=== PATIENT | female | born 1965 | race Caucasian/White ===

== ENCOUNTER → 2020-09-13 08:00 | Outpatient (CLI) | payer OTHER, SELFPAY ==
[2020-09-14 09:14] LABS: Alanine Aminotransferase 27 U/L (12-78); Albumin/Globulin Ratio 1.6 (1.1-1.8); Alkaline Phosphatase 128 U/L (38-126); Anion Gap 11.5 mEq/L (5-15); Aspartate Amino Transferase 29 U/L (14-36); Basophils # 0.1 K/mm3 (0-0.2); Bilirubin,Total 0.4 mg/dl (0.2-1.3); Blood Urea Nitrogen 14 mg/dl (7-17); Calcium 9.3 mg/dl (8.4-10.2); Carbon Dioxide 31 mmol/L (22.0-30.0); Chloride 107 mmol/L (98-107); Chol/HDL Ratio 1.8 (1-3.5); Cholesterol 123 mg/dl (140-200); Eosinophils # 0.2 K/mm3 (0.0-0.4); Eosinophils % 2.4 % (0.1-12.0); Estimated Glomerular Filt Rate 87 ml/min (>60); GFR (African American) 105 ML/MIN (>60); Globulin 2.5 g/dL (1.3-3.2); Glucose 92 mg/dl (74-100); HDL Cholesterol 67 mg/dl (40-60); Hematocrit 48.8 % (37.0-47.0); Hemoglobin 15.4 g/dL (12.2-16.2); Lymphocytes % 25.7 % (10-50); Mean Corpuscular HGB Conc 31.6 g/dL (31.8-35.4); Mean Corpuscular Hemoglobin 29.9 pg (27.0-31.2); Mean Corpuscular Volume 94.5 fl (81-99); Mean Platelet Volume 10.3 fl (7.4-10.4); Monocytes # 0.5 K/mm3 (0.1-1.0); Monocytes % 6.6 % (1.7-9.3); Neutrophils % 64.3 % (37.0-80.0); Platelet Count 197 K/mm3 (142-424); Potassium 4.5 mmoL/L (3.5-5.1); Red Blood Count 5.16 M/mm3 (4.20-5.40); Red Cell Distribution Width 14.3 % (11.5-17.5); Sodium 145 mmol/L (136-145); Total Protein,Serum 6.5 g/dl (6.3-8.2); Triglycerides 62 mg/dl (30-150); VLDL Cholesterol 12 mg/dL (0-40); White Blood Count 7.8 K/mm3 (4.8-10.8)
[2020-09-14 09:43] LABS: Thyroid Stimulating Hormone 1.78 uIU/mL (0.465-4.68)
[2020-09-14 16:44] LABS: Direct LDL Cholesterol 44.31 mg/dL (100-129)
[2020-09-14 16:51] LABS: T4 (Thyroxine) 8.5 ug/dl (5.53-11.0)
== END ==
PROVIDERS: Visit Provider Nurse Practitioner Family
DX: I10 Essential (primary) hypertension (principal); E03.9 Hypothyroidism, unspecified
CPT/HCPCS: 80053; 80061; 84436; 84443; 85025

== ENCOUNTER → 2021-02-02 16:07 | Outpatient (CLI) | payer OTHER, SELFPAY | PROVIDERS: PCP Nurse Practitioner Family; Visit Provider Nurse Practitioner | DX: Z20.822 Contact with and (suspected) exposure to COVID-19 (principal) | CPT/HCPCS: C9803; U0003; U0005 ==

== ENCOUNTER 2021-05-20 16:13 | Emergency (ER) | payer OTHER, SELFPAY ==
[2021-05-20 16:22] VITALS: BP 162/105; PULSE 93; RESP 16; TEMP 36.6; O2SAT 98; BMI 31.0
[2021-05-20 16:36] VITALS: PULSE 93; RESP 16; TEMP 36.6; O2SAT 98; BMI 310.7
--- NOTE | 2021-05-20 16:49 | HMH.EDUTC ---
[facility] [place] Disposition Clinical Impression: Tendinopathy of right shoulder Right shoulder pain Qualifiers: Chronicity: unspecified Qualified Code(s): M25.511 - Pain in right shoulder Disposition: Home, Self-Care Condition on Discharge: Good Instructions: Shoulder Tendinopathy, DI for Shoulder Pain Additional Instructions: Rest the extremity Take the medication as directed. Rest as much as you can for the next few days. Follow up with Dr. Rivera (orthopedics). I put in a referral but you need to call his office and schedule an appointment. The muscle relaxer (cyclobenzaprine--Flexeril) will make you drowsy, so don't drive or operate heavy machinery after taking it. Follow up with your regular doctor. GO TO THE ER FOR ANY WORSENING SYMPTOMS Prescriptions: Cyclobenzaprine HCl [Cyclobenzaprine 10mg Tab] 10 mg PO BIDP PRN #20 tab PRN Reason: Muscle Spasm Transmission Status: Received by [facility] #[id number] methylPREDNISolone [Medrol] 4 mg PO DIRECTED 6 Days #21 packet Transmission Status: Received by [facility] #[id number] Referrals: Abdelrahman Wilkins APRN [Primary Care Provider] - Praneeth Rivera MD [Staff Physician] - Time of Disposition: 17:07 Medical Decision Making - Medical Records Medical records reviewed: No: I reviewed the patient's medical records. - Brady Inquiry Pt receiving controlled substance: No Vital Signs: 05/20/21 16:22 05/20/21 16:36 05/20/21 17:13 Temperature 98 F 98 F 98 F Temperature Source Oral Oral Pulse Rate 93 H Pulse Rate [Radial] 93 H 93 H Respiratory Rate 16 16 16 Blood Pressure 162/105 H Blood Pressure [Right Arm] 162/105 H Blood Pressure Mean [Right Arm] 124 02 Sat by Pulse Oximetry 98 98 Oxygen Delivery Method Room Air Orders (Tests/Meds): ED MEDICATIONS Discontinued Medications Generic Name Dose Route Start Last Admin Trade Name Freq PRN Reason Stop Dose Admin Ketorolac Tromethamine 60 mg 05/20/21 17:03 05/20/21 17:10 Ketorolac 60mg/2ml Vial IM 05/20/21 17:04 60 mg ONCE ONE Administration Methylprednisolone Sodium Succinate 125 mg 05/20/21 17:03 05/20/21 17:07 Methylprednisolone Sod Succ 125mg Vial IM 05/20/21 17:04 125 mg ONCE ONE Administration [facility] [place] HPI - General Stated complaint: shoulder pain Time Seen by Provider: 05/20/21 16:49 Mode of Arrival: Ambulatory Source of Information: Patient Limitations: No Limitations Description of Symptoms (Recalled from Triage Doc. by RN): pt c/o severe R shoulder pain x2 weeks. pt presents with limited ROM and is unable to full lift her arm. pt states she had similar pain in her L shoulder a few weeks ago. however, the left shoulder is no longer painful. pt denies injury to either arm. HEENT Symptoms (Recalled from RN notes): No Resp Symptoms (Recalled from RN notes): No Skin Symptoms (Recalled from RN notes): No MS Symptoms (Recalled from RN notes): Yes Functional Status (Recalled from RN notes): wnl - History of Present Illness Provider Complaint: She c/o right shoulder pain. She states that this shoulder has been hurting for the past 2 weeks. She was having left shoulder pain, but that got better, then she began having pain and decreased rom in the other shoulder. She denies any fall or other injury. - Related Data Previous Rx's Medication Instructions Recorded metoprolol succinate 100 mg 100 mg PO DAILY #90 tab 01/13/21 tablet,extended release 24 hr [id number] 3.3 4 drp OTIC QID #10 ml 01/13/21 mg-3 mg-10 mg-0.5 mg/mL ear drops,susp albuterol sulfate 90 mcg/actuation 1 puff INHALATION Q6H #6.7 g 03/15/21 aerosol inhaler Cyclobenzaprine HCl 10 mg PO BIDP PRN #20 tab 05/20/21 [Cyclobenzaprine 10mg Tab] methylPREDNISolone [Medrol] 4 mg PO DIRECTED 6 Days #21 05/20/21 packet Allergies Allergy/AdvReac Type Severity Reaction Status Date / Time No Known Allergies Allergy Verified 03/15/21 15
[2021-05-20 17:13] VITALS: BP 162/105; PULSE 93; RESP 16; TEMP 36.6
== END 2021-05-20 17:18 | disposition home or self-care (01) ==
PROVIDERS: Emergency Provider Nurse Practitioner Family; PCP Nurse Practitioner Family
DX: M67.911 Unspecified disorder of synovium and tendon, right shoulder (principal); M25.511 Pain in right shoulder; J45.909 Unspecified asthma, uncomplicated; I10 Essential (primary) hypertension; E03.9 Hypothyroidism, unspecified
CPT/HCPCS: 96372; 99213; G0463

== ENCOUNTER 2021-07-07 23:02 | Inpatient (IN) | payer OTHER, SELFPAY ==
[2021-07-07 23:12] VITALS: BP 122/70; PULSE 119; RESP 20; TEMP 36.9; O2SAT 96; BMI 31.3
[2021-07-07 23:20] LABS: Microscopic, Urine URINE MICROSCOPIC (MICROSCOPIC)
[2021-07-07 23:22] LABS: Appearance,Urine CLOUDY (Clear); Blood, Urine 3+ (Negative); Color,Urine BROWN (Yellow); Glucose,Urine (UA) Negative (Negative); Ketones,Urine TRACE (Negative); Leukocyte Esterase,Urine 2+ (Negative); Nitrate,Urine Negative (Negative); PH,Urine 6.5 (5.0-8.5); Protein,Urine 2+ (Negative); Specific Gravity, Urine 1.025 (1.005-1.030)
[2021-07-07 23:23] LABS: Bilirubin,Urine 2+ (Negative)
[2021-07-07 23:27] LABS: Bacteria,Urine 3+ /lpf; RBC,Urine TNTC #/hpf (0-3); WBC,Urine 20-50 #/hpf (0-3)
[2021-07-07 23:30] VITALS: BP 110/79; PULSE 113; O2SAT 99
--- NOTE | 2021-07-07 23:34 | CT_ITS ---
PROCEDURE INFORMATION: Exam: CT Abdomen And Pelvis Without Contrast Exam date and time: 07/07/2021 11:40 PM Age: 55 years old Clinical indication: Abdominal pain; Right; Patient HX: RT flank pain; Additional info: Stone protocol TECHNIQUE: Imaging protocol: Computed tomography of the abdomen and pelvis without contrast. Radiation optimization: All CT scans at this facility use at least one of these dose optimization techniques: automated exposure control; mA and/or kV adjustment per patient size (includes targeted exams where dose is matched to clinical indication); or iterative reconstruction. COMPARISON: No relevant prior studies available. FINDINGS: Lungs: Mild atelectasis in the lung bases. Liver: Normal. No mass. Gallbladder and bile ducts: Normal. No calcified stones. No ductal dilation. Pancreas: Normal. No ductal dilation. Spleen: Normal. No splenomegaly. Adrenal glands: Normal. No mass. Kidneys and ureters: 2.9 cm left renal cyst. Cyst is simple requiring no further follow-up. There is mild left hydronephrosis secondary to a 6 mm stone in the distal left ureter. Punctate non-obstructing left renal stone. Stomach and bowel: Unremarkable. No obstruction. No mucosal thickening. Appendix: Normal appendix. Intraperitoneal space: Unremarkable. No free air. No significant fluid collection. Vasculature: Unremarkable. No abdominal aortic aneurysm. Lymph nodes: Unremarkable. No enlarged lymph nodes. Urinary bladder: Unremarkable as visualized. Reproductive: Mild fluid in the endometrial canal. Bones/joints: Unremarkable. No acute fracture. Soft tissues: Unremarkable. IMPRESSION: 1. There is mild left hydronephrosis secondary to a 6 mm stone in the distal left ureter. 2. Punctate non-obstructing left renal stone. Simple left renal cyst. 3. Normal appendix. COMMENTS: Consistent with the [employer]'s Incidental Findings Committee white paper (J Am Baltazar Radiol 2018): Any incidental renal lesion less than 1 cm or classified as too small to characterize, or any incidental cystic renal lesion characterized as simple-appearing, is likely benign. No follow-up imaging is recommended for these lesions per consensus recommendations based on imaging criteria.
[2021-07-07 23:35] LABS: Basophils # 0.3 K/mm3 (0-0.2); Basophils % 1.8 % (0.1-2.0); Eosinophils # 0.1 K/mm3 (0.0-0.4); Eosinophils % 0.7 % (0.1-12.0); Hematocrit 49.8 % (37.0-47.0); Hemoglobin 16.5 g/dL (12.2-16.2); Lymphocytes # 0.7 K/mm3 (0.7-4.5); Lymphocytes % 4.9 % (10-50); Mean Corpuscular HGB Conc 33.1 g/dL (31.8-35.4); Mean Corpuscular Hemoglobin 30.5 pg (27.0-31.2); Mean Corpuscular Volume 92.2 fl (81-99); Mean Platelet Volume 9.7 fl (7.4-10.4); Monocytes # 0.7 K/mm3 (0.1-1.0); Monocytes % 4.7 % (1.7-9.3); Neutrophils # 13.3 K/mm3 (1.8-7.8); Neutrophils % 87.9 % (37.0-80.0); Platelet Count 133 K/mm3 (142-424); White Blood Count 15.1 K/mm3 (4.8-10.8)
[2021-07-07 23:36] LABS: MANUAL DIFFERENTIAL MANUAL DIFFERENTIAL (MANUAL DIFF)
[2021-07-07 23:40] LABS: Chloride 100 mmol/L (98-107); Potassium 3.6 mmoL/L (3.5-5.1); Sodium 132 mmol/L (136-145)
[2021-07-07 23:42] LABS: Alanine Aminotransferase 161 U/L (12-78); Aspartate Amino Transferase 158 U/L (14-36); Blood Urea Nitrogen 19 mg/dl (7-17); Creatinine Clearance Estimated 91 mL/min (50-200); Estimated Glomerular Filt Rate 58 ml/min (>60); GFR (African American) 70 ML/MIN (>60)
[2021-07-07 23:43] LABS: Albumin Level 3.5 g/dl (3.5-5.0); Albumin/Globulin Ratio 1.2 (1.1-1.8); Alkaline Phosphatase 211 U/L (38-126); Anion Gap 8.6 mEq/L (5-15); Bilirubin,Total 0.7 mg/dl (0.2-1.3); Carbon Dioxide 27 mmol/L (22.0-30.0); Globulin 2.9 g/dL (1.3-3.2); Glucose 126 mg/dl (74-100); Lipase 72 U/L (23-300); Total Protein,Serum 6.4 g/dl (6.3-8.2)
[2021-07-07 23:48] LABS: Lymphocytes % 3 % (10-50); Monocytes % 1 % (2-9); Neutrophils % 82 % (42-76); Total Cells Counted 100
[2021-07-07 23:49] LABS: Platelet Estimate Normal; RBC Morphology Normal
[2021-07-07 23:56] LABS: Lactic Acid 1.2 mmol/L (0.7-2.1)
[2021-07-08] VITALS (7 sets, daily range): BP systolic 89–129; BP diastolic 34–84; PULSE 42–136; RESP 14–16; TEMP 36.6–37.8; O2SAT 92–98; BMI 30.7
--- NOTE | 2021-07-08 01:23 | PC.NURSE ---
Dr. Belle paged
--- NOTE | 2021-07-08 01:34 | HMH.EDGENADL ---
ED Disposition Clinical Impression: Nephrolithiasis Urinary tract infection Qualifiers: Urinary tract infection type: site unspecified Hematuria presence: with hematuria Qualified Code(s): N39.0 - Urinary tract infection, site not specified; R31.9 - Hematuria, unspecified Disposition: Admitted As Inpatient Condition on Discharge: Good Instructions: DI for Urinary Tract Infection (UTI), DI for Urinary Tract Infection in Children Referrals: Abdelrahman Wilkins APRN [Primary Care Provider] - - Critical Care Critical Care Time: No Attestation: On 07/07/21, the high probability of a clinically significant, sudden or life threatening deterioration of the following system(s) required my full and direct attention, intervention and personal management. The time I documented below is in addition to time spent performing reported procedures but includes the following listed in this critical care notation. Medical Decision Making - Brady Inquiry Pt receiving controlled substance: No Vital Signs: 07/07/21 23:12 07/07/21 23:30 07/08/21 00:00 Temperature 98.4 F Temperature Source Oral Pulse Rate 113 H 108 H Pulse Rate [Apical] 119 H Respiratory Rate 20 Blood Pressure 110/79 99/69 L Blood Pressure [Right Arm] 122/70 Blood Pressure Mean [Right Arm] 87 Blood Pressure Source [Right Arm] Automatic Cuff Blood Pressure Position [Right Arm] Sitting 02 Sat by Pulse Oximetry 96 99 93 L Oxygen Delivery Method Room Air Room Air Room Air 07/08/21 00:30 Temperature Temperature Source Pulse Rate 92 H Pulse Rate [Apical] Respiratory Rate Blood Pressure 102/67 L Blood Pressure [Right Arm] Blood Pressure Mean [Right Arm] Blood Pressure Source [Right Arm] Blood Pressure Position [Right Arm] 02 Sat by Pulse Oximetry 98 Oxygen Delivery Method Room Air - Lab Data Lab Results 07/07/21 23:09: Urine Color Brown, Urine Appearance Cloudy, Urine pH 6.5, Ur Specific [place] 1.025, Urine Protein 2+, Urine Glucose (UA) Negative, Urine Ketones Trace, Urine Blood 3+, Urine Nitrate Negative, Urine Bilirubin 2+ A, Urine Urobilinogen 4.0, Ur Leukocyte Esterase 2+ A, Urine RBC Tntc, Urine WBC 20-50, Ur Squamous Epith Cells 5-10, Urine Bacteria 3+ 07/07/21 23:21: WBC 15.1 H, RBC 5.40, Hgb 16.5 H, Hct 49.8 H, MCV 92.2, MCH 30.5, MCHC 33.1, RDW 14.0, Plt Count 133 L, MPV 9.7, Neut % (Auto) 87.9 H, Lymph % (Auto) 4.9 L, [place] % (Auto) 4.7, Eos % (Auto) 0.7, Baso % (Auto) 1.8, Neut # (Auto) 13.3 H, Lymph # (Auto) 0.7, [place] # (Auto) 0.7, Eos # (Auto) 0.1, Baso # (Auto) 0.3 H, Total Counted 100, Neutrophils % (Manual) 82 H, Band Neutrophils % 14.0 H, Lymphocytes % (Manual) 3 L, Monocytes % (Manual) 1 L, Platelet Estimate Normal, RBC Morphology Normal 07/07/21 23:21: Sodium 132 L, Potassium 3.6, Chloride 100, Carbon Dioxide 27, Anion Gap 8.6, BUN 19 H, Creatinine 1.00, Estimated Creat Clear 91, Estimated GFR 58 L, Est GFR ( Amer) 70, Glucose 126 H, Calcium 9.0, Total Bilirubin 0.7, AST 158 H, ALT 161 H, Alkaline Phosphatase 211 H, Total Protein 6.4, Albumin 3.5, Globulin 2.9, Albumin/Globulin Ratio 1.2 07/07/21 23:21: Lipase 72 07/07/21 23:21: Lactate 1.2 Result diagrams: 07/07/21 23:21 07/07/21 23:21 Orders (Tests/Meds): ED MEDICATIONS Generic Name Dose Route Start Last Admin Trade Name Freq PRN Reason Stop Dose Admin Sodium Chloride 1,000 mls @ 999 mls/hr 07/07/21 23:30 07/07/21 23:29 Sod Chlor 0.9% 1000ml Bag IV 07/08/21 00:30 999 mls/hr .Q1H1M DANIELA Administration Ceftriaxone Sodium 1 gm/ 50 mls @ 100 mls/hr 07/08/21 01:30 07/08/21 01:30 Sodium Chloride IV 07/22/21 01:29 100 mls/hr Q24H DANIELA Administration Discontinued Medications Generic Name Dose Route Start Last Admin Trade Name Freq PRN Reason Stop Dose Admin Ketorolac Tromethamine 30 mg 07/07/21 23:32 07/07/21 23:38 Ketorolac 30mg/Ml Vial IV 07/07/21 23:33 30 mg ONCE ONE Administration ORDERS Category Date
[2021-07-08 01:35] LABS: Coronavirus 19, PCR Not Detected (NotDetected); Influenza A, PCR Not Detected (NotDetected); Influenza B, PCR Not Detected (NotDetected)
--- NOTE | 2021-07-08 03:15 | PC.NURSE ---
pt arrived to floor via wheelchair at 0310
--- NOTE | 2021-07-08 09:09 | P.CONPHA_ITS ---
[facility] Pharmacy VTE Monitoring - Patient Demographics Admission date: 07/08/21 Report Date: 07/08/21 Time: 09:09 Allergies/Adverse Reactions: Patient Allergies No Known Allergies Allergy (Verified 06/05/21 13:51) Height: 1.7 m Weight: 88.859 kg Patient Problems: Current Active Problems Nephrolithiasis (Acute) Urinary tract infection (Acute) - VTE Risk Labs: VTE Related Lab Results Hgb 16.5 g/dL (12.2-16.2) H 07/07/21 23:21 Hct 49.8 % (37.0-47.0) H 07/07/21 23:21 Plt Count 133 K/mm3 (142-424) L 07/07/21 23:21 BUN 19 mg/dl (7-17) H 07/07/21 23:21 Creatinine 1.00 mg/dl (0.52-1.04) 07/07/21 23:21 Estimated Creat Clear 91 mL/min (50-200) 07/07/21 23:21 VTE Risk Level: Low Risk - Prophylaxis VTE Prophylaxis Ordered?: Yes Types of VTE Prophylaxis: TEDS Knee High Location of Applied Device: Bilateral Lower Extremeties
--- NOTE | 2021-07-08 11:38 | HMH.PHAINT ---
MEDICATION RECONCILIATION COMPLETED ON PATIENT USING EXTERNAL FILL HISTORY FROM PHARMACY. -JAYDEN MILLAN, CHETNAD
--- NOTE | 2021-07-08 11:51 | HMH.HP ---
*Admission Date: 07/08/21 *Chief complaint: nephrolithiasis *History of present illness: 55-year-old female presents emergency department with history of abdominal pain patient's back with CVA tenderness and fevers today with patient stating that she took acetaminophen prior to arrival. Patient is in mild distress secondary pain and has non peritonitic abdomen and is hemodynamically stable. Patient was given Toradol for pain control in the emergency department, with CT stone protocol showing left distal ureter 6 mm stone with mild hydronephrosis with urinalysis consistent with urinary tract infection concerning for infected stone. Urology was consulted and patient was given crystalloid fluid in the emergency department and started on crystalloid maintenance fluid, with patient given 1 g Rocephin. CBC shows elevated white blood cell count, metabolic panel shows mild transaminitis which is nonspecific, with some bilirubin in the urine. Flomax initiated and patient admitted to med/surge for infected stone. Patient also given Zofran and morphine for antiemesis prophylaxis and pain control. above per ER physician Pt is npo after midnight. [facility] History I have reviewed the patient's past medical history: Yes Medical History: Reports:: Asthma, Hypertension Denies:: Cancer, Diabetes Mellitus Type 1, Diabetes Mellitus Type 2 *Have you ever received a pneumonia vaccine?: No *Have you received a flu vaccine this season?: No Other Medical History: Reports: Hypothyroidism Other Surgeries: Yes: Plastic Surgery, Tubal Ligation - *Social History Smoking Status: Never smoker Alcohol Intake: former Alcohol Intake Frequency:: other Substance Use Type: denies use *Occupational Status:: other *Travel in the last 8 weeks: None Family Hx:: Hypertension, Kidney Disease, Thyroid Disorder Review of Systems - Constitutional Reports anorexia, Reports weakness - Eyes Denies change in vision - ENT Denies abnormal hearing - *Cardiovascular Denies chest pain - *Respiratory Denies cough - *Gastrointestinal Reports abdominal pain, Reports vomiting - *Genitourinary Reports painful urination, Reports side pain - *Musculoskeletal Reports muscle weakness - Integumentary/Breasts Denies yellowing of the skin - *Neurologic Denies behavioral changes - Psychiatric Denies behavioral changes - Endocrine Denies cold intolerance, Denies excessive sweating - Hematologic/Lymphatic Denies easy bleeding, Denies easy bruising - Allergic/Immunologic Denies hives Meds Home Medications Medication Instructions Recorded Confirmed Type Cyclobenzaprine HCl 10 mg PO BIDP PRN #20 tab 03/26/22 05/14/22 Rx [Cyclobenzaprine 10mg Tab] Albuterol Sulfate [Albuterol 1 puff IH Q6HP PRN 07/08/21 07/08/21 History Sulfate Hfa] Fluticasone Propionate [Flovent 1 puff IH BID 07/08/21 07/08/21 History HFA] Levothyroxine Sodium 25 mcg PO DAILY 07/08/21 07/08/21 History [Levothyroxine] Metoprolol Succinate [Metoprolol 100 mg PO DAILY 07/08/21 07/08/21 History Succinate 100mg Tablet*] Omeprazole 20 mg PO DAILY 07/08/21 07/08/21 History allopurinoL [Allopurinol 100mg 100 mg PO DAILY 07/08/21 07/08/21 History tablet] hydrOXYzine pamoate [Vistaril] 25 mg PO HS 07/08/21 07/08/21 History lamoTRIgine [Lamotrigine] 100 mg PO DAILY 07/08/21 07/08/21 History lisinopriL [Lisinopril] 10 mg PO DAILY 07/08/21 07/08/21 History Allergies Allergy/AdvReac Type Severity Reaction Status Date / Time No Known Allergies Allergy Verified 06/05/21 13:51 Exam Vital signs and Labs for Last 24 Hours: Temp Pulse Resp BP Pulse Ox 99.0 F 136 H 16 118/82 92 L 07/08/21 08:00 07/08/21 08:00 07/08/21 08:00 07/08/21 08:00 07/08/21 08:00 Laboratory Results - last 24 hr 07/07/21 23:09: Urine Color Brown, Urine Appearance Cloudy, Urine pH 6.5, Ur Specific [place] 1.025, Urine Protein 2+, Urine Glucose (UA) Negative, Urine Ketones T
--- NOTE | 2021-07-08 14:36 | PC.NURSE ---
Pt is alert and oriented x4. She has been medicated with morphine once so far this shift with desired relief. She is up to the bathroom per self and urine is being strained. Pt has had no c/o N/V/D. Call foley within reach. Will continue to monitor.
[2021-07-09] VITALS (16 sets, daily range): BP systolic 95–129; BP diastolic 48–75; PULSE 71–110; RESP 15–24; TEMP 36.6–43; O2SAT 90–98; BMI 32.5
--- NOTE | 2021-07-09 04:07 | PC.NURSE ---
Pt is alert and oriented x4. She has been medicated with morphine x1 thus far in shift. Patient has ambulated to the restroom several times this shift. Urine is being strained no stone thus far, urine is tea colored. VSS.
[2021-07-09 06:55] LABS: Basophils # 0.2 K/mm3 (0-0.2); Basophils % 1.8 % (0.1-2.0); Eosinophils # 0.1 K/mm3 (0.0-0.4); Hematocrit 42.6 % (37.0-47.0); Hemoglobin 13.9 g/dL (12.2-16.2); Lymphocytes # 1.4 K/mm3 (0.7-4.5); Lymphocytes % 13.9 % (10-50); Mean Corpuscular HGB Conc 32.5 g/dL (31.8-35.4); Mean Corpuscular Hemoglobin 30.2 pg (27.0-31.2); Mean Corpuscular Volume 92.9 fl (81-99); Mean Platelet Volume 9.6 fl (7.4-10.4); Monocytes # 0.8 K/mm3 (0.1-1.0); Monocytes % 7.8 % (1.7-9.3); Neutrophils # 7.6 K/mm3 (1.8-7.8); Neutrophils % 75.5 % (37.0-80.0); Platelet Count 111 K/mm3 (142-424); Red Blood Count 4.59 M/mm3 (4.20-5.40); Red Cell Distribution Width 14.1 % (11.5-17.5); White Blood Count 10.1 K/mm3 (4.8-10.8)
[2021-07-09 07:05] LABS: Anion Gap 9.6 mEq/L (5-15); Blood Urea Nitrogen 12 mg/dl (7-17); Calcium 7.9 mg/dl (8.4-10.2); Carbon Dioxide 24 mmol/L (22.0-30.0); Chloride 106 mmol/L (98-107); Creatinine Clearance Estimated 157 mL/min (50-200); Estimated Glomerular Filt Rate 104 ml/min (>60); GFR (African American) 126 ML/MIN (>60); Glucose 101 mg/dl (74-100); Potassium 3.6 mmoL/L (3.5-5.1); Sodium 136 mmol/L (136-145)
--- NOTE | 2021-07-09 09:03 | HMH.ANESCL ---
[facility] Anesthesia Checklist - Patient Identification Patient Identification: Arm Band, Verbal (Name & ) - Structural Data Admitted From: Inpatient Planned Operative Procedure/s: Left Ureteroscopy Consent for Planned Operative Procedure(s) Verified: Yes Verified Documents: Surgical Consent - NPO Status Verified Time NPO: 00:00 - Chart Verification Results Verified: CBC, BMP - Airway Assessment C-Spine Mobility Assessed: Yes TMJ Mobility Assessed: Yes Dentition: Good Dentition - Neurological Assessment Level of Consciousness: Awake, Alert, Appropriate - Anesthesia Plan Anesthesia Risk discussed: Yes ASA Class: II Anesthesia Type: General [facility] History I have reviewed the patient's past medical history: Yes Medical History: Reports:: Asthma, Hypertension Denies:: Cancer, Diabetes Mellitus Type 1, Diabetes Mellitus Type 2 *Have you ever received a pneumonia vaccine?: No *Have you received a flu vaccine this season?: No Other Medical History: Reports: Hypothyroidism Anesthesia experience/problems:: none Other Surgeries: Yes: Plastic Surgery, Tubal Ligation - *Social History Smoking Status: Never smoker Alcohol Intake: former Alcohol Intake Frequency:: other Substance Use Type: denies use *Occupational Status:: other *Travel in the last 8 weeks: None Family Hx:: Hypertension, Kidney Disease, Thyroid Disorder
--- NOTE | 2021-07-09 09:45 | P.PN_ITS ---
[facility] Anesthesia Record Part I Intake, IV Amount: 400 Estimated blood loss (mL): 0 Urine output (mL): 0 Blood Products used (#): none Blood Pressure: 95/48 SaO2: 96 Pulse Rate: 80 Respiratory Rate: 24 Temperature: 98.0 F Patient is:: Drowsy Stable to PACU at:: 09:43
--- NOTE | 2021-07-09 09:47 | XR_ITS ---
PROCEDURE INFORMATION: Exam: Limited fluoroscopic image Exam date and time: 07/09/2021 9:47 AM Age: 55 years old Clinical indication: Abdominal pain; Flank; Prior surgery; Surgery date: Post-operative (0-2 days); Surgery type: Left stone extraction; Additional info: Left stone extraction. Fluoro time .13 min TECHNIQUE: Imaging protocol: Limited fluoroscopic image. Views: Limited fluoroscopic image. COMPARISON: CT ABDOMEN PELVIS WO CON 07/07/2021 11:40 PM FINDINGS: Gastrointestinal tract: Nondiagnostic. Intraperitoneal space: This is a nondiagnostic study. A limited coned in fluoroscopic images provided of the left pelvis. Please see the dedicated procedure dictation for details. Bones/joints: Nondiagnostic. IMPRESSION: Nondiagnostic study.
--- NOTE | 2021-07-09 10:07 | HMH.CONS ---
*Admission Date: 07/08/21 *Reason for consult:: Left flank pain *History of present illness: Patient is a 55-year-old white female with a 4-day history of left renal colic. She presented to the emergency room on July [address] scan showed a 6 mm distal ureteral stone on the left side with mild hydronephrosis. Her white count was slightly elevated and we discussed that treatment options. She elected to observe a trial of passage and was kept for observation on Saturday night. On Saturday morning she has had a couple of episodes of left renal colic during the evening and wished to proceed with surgical management. [facility] History Medical History: Reports:: Asthma, Hypertension Denies:: Cancer, Diabetes Mellitus Type 1, Diabetes Mellitus Type 2 *Have you ever received a pneumonia vaccine?: No *Have you received a flu vaccine this season?: No Other Medical History: Reports: Hypothyroidism Anesthesia experience/problems:: none Other Surgeries: Yes: Plastic Surgery, Tubal Ligation - *Social History Smoking Status: Never smoker Alcohol Intake: former Alcohol Intake Frequency:: other Substance Use Type: denies use *Occupational Status:: other *Travel in the last 8 weeks: None Family Hx:: Hypertension, Kidney Disease, Thyroid Disorder Review of Systems - Review of Systems Review of systems:: pertinent systems reviewed and negative unless documented below - *Neurologic Reports weakness, Denies abnormal hearing, Denies behavioral changes Meds Home Medications Medication Instructions Recorded Confirmed Type Cyclobenzaprine HCl 10 mg PO BIDP PRN #20 tab 05/20/21 07/08/21 Rx [Cyclobenzaprine 10mg Tab] Albuterol Sulfate [Albuterol 1 puff IH Q6HP PRN 07/08/21 07/08/21 History Sulfate Hfa] Fluticasone Propionate [Flovent 1 puff IH BID 07/08/21 07/08/21 History HFA] Levothyroxine Sodium 25 mcg PO DAILY 07/08/21 07/08/21 History [Levothyroxine] Metoprolol Succinate [Metoprolol 100 mg PO DAILY 07/08/21 07/08/21 History Succinate 100mg Tablet*] Omeprazole 20 mg PO DAILY 07/08/21 07/08/21 History allopurinoL [Allopurinol 100mg 100 mg PO DAILY 07/08/21 07/08/21 History tablet] hydrOXYzine pamoate [Vistaril] 25 mg PO HS 07/08/21 07/08/21 History lamoTRIgine [Lamotrigine] 100 mg PO DAILY 07/08/21 07/08/21 History lisinopriL [Lisinopril] 10 mg PO DAILY 07/08/21 07/08/21 History Allergies Allergy/AdvReac Type Severity Reaction Status Date / Time No Known Allergies Allergy Verified 06/05/21 13:51 Exam Vital signs and Labs for Last 24 Hours: Temp Pulse Resp BP Pulse Ox 98.0 F 76 18 112/58 L 98 07/09/21 09:46 07/09/21 10:03 07/09/21 10:03 07/09/21 10:03 07/09/21 10:03 Laboratory Results - last 24 hr 07/09/21 06:35: WBC 10.1 D, RBC 4.59, Hgb 13.9, Hct 42.6, MCV 92.9, MCH 30.2, MCHC 32.5, RDW 14.1, Plt Count 111 L, MPV 9.6, Neut % (Auto) 75.5, Lymph % (Auto) 13.9, [place] % (Auto) 7.8, Eos % (Auto) 1.0, Baso % (Auto) 1.8, Neut # (Auto) 7.6, Lymph # (Auto) 1.4, [place] # (Auto) 0.8, Eos # (Auto) 0.1, Baso # (Auto) 0.2 07/09/21 06:35: Sodium 136, Potassium 3.6, Chloride 106, Carbon Dioxide 24, Anion Gap 9.6, BUN 12 D, Creatinine 0.60 D, Estimated Creat Clear 157, Estimated GFR 104, Est GFR ( Amer) 126 D, Glucose 101 H, Calcium 7.9 L I & O for Last 24 hours: Intake & Output 07/06/21 07/07/21 07/08/21 07/09/21 23:59 23:59 23:59 23:59 Intake Total 4337 / 4337 400 / 400 Output Total 900 / 1600 1200 / 1200 Balance 3437 / 2737 -800 / -800 Weight 90.718 kg 88.859 kg 93.894 kg Microbiology Reports for the Last 24 Hours: Microbiology 07/07/21 23:09 Urine,Clean Catch Urine Culture - Preliminary - Constitutional no acute distress - *Routine HEENT Exam Head: Present: normocephalic Eye: Present: EOMI, PERRL ENT: Present: mucous membranes moist - *Routine Neck Exam Present: supple. Absent: lymphadenopathy - *Routine Respiratory Exam Absent: accessory muscle use
--- NOTE | 2021-07-09 10:09 | HMH.OPNOTE ---
Date of procedure: 07/09/21 Pre-op Diagnosis:: 6 mm distal left ureteral stone Post-op Diagnosis:: Spontaneous passage of a stone Procedure performed:: Cystoscopy and left ureteroscopy Surgeon:: Ashok Belle MD PROJECTOR BOOTH OPERATOR:: Other (jose leach) Anesthesia: LMA Estimated blood loss (mL): 0 Clinical Note:: 55-year-old white female with a 4-day history of left renal colic. CT scan shows a 6 mm distal ureteral stone. She has continued to have some left renal colic in the wished to proceed with surgical management. Operative findings:: A calcification was noted in the vaginal orifice upon placing the cystoscope. We proceeded with cystoscopy and left ureteroscopy and there was no evidence of any other stones. Operative note:: Patient taken to the operating room after informed consent was obtained. He was placed on the operating table in the supine position and general anesthesia administered. She had been on preoperative Rocephin. Sequential compression devices placed. She was then placed into the dorsal lithotomy position and prepped draped in the standard surgical fashion. Upon placement of the cystoscope there was noted to be a calcification at the vaginal orifice. This appeared consistent with a stone. This was passed off as a specimen. We proceeded with cystoscopy which showed no evidence of calcifications. Ureteral orifices in the normal anatomic position. There was some squamous metaplasia of the trigonal region. A guidewire was passed into the left ureteral orifice without difficulty and under fluoroscopy. No evidence of calcifications were noted in the course of the ureter. The cystoscope removed and our semirigid ureteroscope then passed into the bladder and into the left ureter and up to the proximal ureter without evidence of the stone. Scope removed atraumatically and patient tolerated well. The bladder drained and Urojet placed into the urethra. Patient tolerated well Condition: stable Disposition: PACU Specimens:: Stone Complications:: None
--- NOTE | 2021-07-09 10:15 | PC.NURSE ---
1010-detailed report called to manolo naranjo 1013-pt transported to 2nd floor room 214 via hospital w/fatmata rails up and left in care of manolo naranjo with bed locked in lowest position, vss, pt stable
--- NOTE | 2021-07-09 12:30 | HMH.DCSUM ---
General - General Admission date:: 07/08/21 HPI HPI: 55-year-old female presents emergency department with history of abdominal pain patient's back with CVA tenderness and fevers today with patient stating that she took acetaminophen prior to arrival. Patient is in mild distress secondary pain and has non peritonitic abdomen and is hemodynamically stable. Patient was given Toradol for pain control in the emergency department, with CT stone protocol showing left distal ureter 6 mm stone with mild hydronephrosis with urinalysis consistent with urinary tract infection concerning for infected stone. Urology was consulted and patient was given crystalloid fluid in the emergency department and started on crystalloid maintenance fluid, with patient given 1 g Rocephin. CBC shows elevated white blood cell count, metabolic panel shows mild transaminitis which is nonspecific, with some bilirubin in the urine. Flomax initiated and patient admitted to med/surge for infected stone. Patient also given Zofran and morphine for antiemesis prophylaxis and pain control. above per ER physician Pt is npo after midnight. Hospital Course Hospital Course: Patient was admitted with a 6 mm stone in the left distal ureter. Features occurred in the setting of UTI. Patient was taken to the operating room on July 10, 2019, cystoscopy and ureteroscopy. Stone passed easily. Seen postoperatively the patient was alert lucid and without pain. He was tolerating p.o. She feels ready for discharge Objective Vital signs: Temp Pulse Resp BP Pulse Ox 97.8 F 79 18 102/60 L 91 L 07/09/21 10:13 07/09/21 12:10 07/09/21 12:10 07/09/21 12:10 07/09/21 12:10 no acute distress - *Routine HEENT Exam Head: Present: normocephalic Eye: Present: EOMI, PERRL ENT: Present: mucous membranes moist - *Routine Neck Exam Present: supple - *Routine Respiratory Exam Present: CTA bilaterally - *Routine Cardiovascular Exam Present: RRR - *Routine Abdominal Exam Present: soft, normoactive bowel sounds. Absent: tenderness - *Routine Extremities Exam Absent: cyanosis, clubbing, edema - *Routine Skin Exam Present: warm. Absent: rash Results Labs on day of discharge: Labs from last 24 hours 07/09/21 07/09/21 06:35 06:35 WBC 10.1 D RBC 4.59 Hgb 13.9 Hct 42.6 MCV 92.9 MCH 30.2 MCHC 32.5 RDW 14.1 Plt Count 111 L MPV 9.6 Neut % (Auto) 75.5 Lymph % (Auto) 13.9 Fergus % (Auto) 7.8 Eos % (Auto) 1.0 Baso % (Auto) 1.8 Neut # (Auto) 7.6 Lymph # (Auto) 1.4 Fergus # (Auto) 0.8 Eos # (Auto) 0.1 Baso # (Auto) 0.2 Sodium 136 Potassium 3.6 Chloride 106 Carbon Dioxide 24 Anion Gap 9.6 BUN 12 D Creatinine 0.60 D Estimated Creat Clear 157 Estimated GFR 104 Est GFR ( Amer) 126 D Glucose 101 H Calcium 7.9 L Preliminary micro results at discharge 07/07/21 23:09 Urine Culture - Preliminary Urine,Clean Catch DS: Diagnosis - Discharge Diagnosis (1) Nephrolithiasis Status: Acute (2) Urinary tract infection Status: Acute (3) Hypertension Status: Acute (4) Hypothyroidism Status: Acute (5) Ureteral calculus, left Status: Acute Discharge Plan - Patient Discharge Instructions ACTIVITY: Continue current activity DIET: advance to your usual diet - Follow up Plan Follow up with: Abdelrahman Wilkins APRN [Primary Care Provider] - 1 week Disposition: Home, Self-Care Condition at discharge:: Improved Home Medications: Home Medications Medication Instructions Recorded Confirmed Type Cyclobenzaprine HCl 10 mg PO BIDP PRN #20 tab 05/20/21 07/08/21 Rx [Cyclobenzaprine 10mg Tab] Albuterol Sulfate [Albuterol 1 puff IH Q6HP PRN 07/08/21 07/08/21 History Sulfate Hfa] Fluticasone Propionate [Flovent 1 puff IH BID 07/08/21 07/08/21 History HFA] Levothyroxine Sodium 25 mcg PO DAILY 07/08/21 07/08/21 History
--- NOTE | 2021-07-10 07:04 | HMH.ANESII ---
[facility] Anesthesia Record Part II Discharge Time: 10:13 Destination: Home PACU nurse assessment reviewed?: Yes Patient Condition:: Good Anesthesia Complications:: None Swallowing reflex intact?: Yes Cyanosis?: No Blood Pressure: 103/65 Pulse Rate: 77 Temperature: 97.8 F Mental Status: Alert & Oriented Pain level:: 0 Nausea and/or vomitting:: None Intake, IV Amount: 0
[2021-07-10 07:05] VITALS: BP 103/65; PULSE 77; TEMP 36.6
--- NOTE | 2021-07-11 13:58 | CARE MANAGER ---
Contacted patient related to discharge from hospital. Patient states she is not feeling well. She continues with pain in her lower back. She states that she is having urine incontinence and shortness of breath. The shortness of breath is new since being discharged. Recommended she follow up with PCP as soon as possible. Contacted Abdelrahman Wilkins APRN's office to give them a heads up about what was going on with the patient.
[2021-07-24 20:41] LABS: Ca oxalate dihydrate 20%
[2021-07-24 20:42] LABS: Calcium phosphate 30%
== END 2021-07-09 14:32 | disposition home or self-care (01) | DRG 690 ==
LOC: ER 07-08 01:46 → 2ND 07-08 02:31
PROVIDERS: Urology; Admitting Provider Internal Medicine Adolescent Medicine; Emergency Provider Student in an Organized Health Care Education/Training Program; PCP Nurse Practitioner Family; Visit Provider Emergency Medicine
PROC: 0TJ98ZZ Inspection of Ureter, Via Natural or Artificial Opening Endoscopic (ICD-10-PCS; CPT 52352; principal; 2021-07-09 09:00)
DX: N13.6 Pyonephrosis (principal); M10.9 Gout, unspecified; M19.90 Unspecified osteoarthritis, unspecified site; E03.9 Hypothyroidism, unspecified; J45.909 Unspecified asthma, uncomplicated
CPT/HCPCS: 52351; 74018; 74176; 76000; 80048; 80053; 81001; 82370; 83605; 83690; 85007; 85025; 87040; 87086; 96375; C9803; J0696; J2405; U0003; U0005

== ENCOUNTER → 2021-11-07 15:16 | Outpatient (CLI) | payer OTHER, SELFPAY ==
[2021-11-07 16:25] LABS: Alanine Aminotransferase 27 U/L (12-78); Albumin Level 3.8 g/dl (3.5-5.0); Albumin/Globulin Ratio 1.4 (1.1-1.8); Alkaline Phosphatase 121 U/L (38-126); Aspartate Amino Transferase 29 U/L (14-36); Blood Urea Nitrogen 17 mg/dl (7-17); Calcium 9.2 mg/dl (8.4-10.2); Carbon Dioxide 28 mmol/L (22.0-30.0); Chloride 102 mmol/L (98-107); Estimated Glomerular Filt Rate 87 ml/min (>60); GFR (African American) 105 ML/MIN (>60); Globulin 2.7 g/dL (1.3-3.2); Glucose 91 mg/dl (74-100); Sodium 139 mmol/L (136-145); Total Protein,Serum 6.5 g/dl (6.3-8.2)
[2021-11-07 16:26] LABS: Bilirubin,Total < 0.1 mg/dl (0.2-1.3)
== END ==
PROVIDERS: PCP Family Medicine; Visit Provider Family Medicine
DX: I71.2 Thoracic aortic aneurysm, without rupture (principal); M54.30 Sciatica, unspecified side; M54.9 Dorsalgia, unspecified
CPT/HCPCS: 36415; 80053

== ENCOUNTER → 2021-11-09 09:06 | Outpatient (CLI) | payer OTHER, SELFPAY ==
--- NOTE | 2021-11-09 09:07 | CT_ITS ---
FINAL REPORT CLINICAL HISTORY: thoracic aortic aneurysm FINDINGS: Thin section axial CT images of the chest were obtained with contrast. 3D reformatted images were also obtained. This study was performed with techniques to keep radiation doses as low as reasonably achievable (ALARA). Individualized dose reduction techniques using automated exposure control or adjustment of mA and/or kV according to the patient's size were employed. There is no evidence of pulmonary embolism. There is a 4.6 cm ascending aortic aneurysm. There is no evidence of dissection. There is no evidence of mediastinal or hilar mass or adenopathy. There is no evidence of pulmonary mass or nodule. There is mild atelectasis or scarring in the lung bases. There is a ruptured left breast implant. Limited images of the upper abdomen are unremarkable. IMPRESSION: 4.6 cm ascending aortic aneurysm. No evidence of pulmonary embolism. Mild atelectasis or scarring in the lung bases. Reviewed, Interpreted and Dictated by Benjamin Harding III, MD Transcribed by Hu Márquez Authenticated and [facility]
== END ==
PROVIDERS: PCP Emergency Medicine; Visit Provider Family Medicine
DX: I71.2 Thoracic aortic aneurysm, without rupture (principal)
CPT/HCPCS: 71275; Q9967

== ENCOUNTER 2021-12-09 08:56 | Emergency (ER) | payer OTHER, SELFPAY ==
--- NOTE | 2021-12-09 09:00 | ECG_ITS ---
APPROVED REPORT Exam: Resting ECG HR:89 bpm ECG Measurements Heart Rate 89 AXES LA 184 P 60 QRSd 89 QRS -59 QT 378 T 61 QTc 425 Conclusion SINUS RHYTHM PATTERN CONSISTENT WITH PULMONARY DISEASE LEFT ANTERIOR FASCICULAR BLOCK Late r wave progression ABNORMAL ECG UNCONFIRMED REPORT Electronically signed by : Bhupendra Perdomo MD 12/11/2021 21:28:51
--- NOTE | 2021-12-09 09:00 | XR_ITS ---
PROCEDURE INFORMATION: Exam: XR Chest Exam date and time: 12/09/2021 9:27 AM Age: 56 years old Clinical indication: Cough and shortness of breath TECHNIQUE: Imaging protocol: Radiologic exam of the chest. Views: 1 view. COMPARISON: CT ANGIO CHEST 11/09/2021 9:35 AM FINDINGS: Tubes, catheters and devices: Right breast implant Lungs: Opacification in the left lung base Pleural spaces: Unremarkable. No pleural effusion. No pneumothorax. Heart/Mediastinum: Unremarkable. No cardiomegaly. Bones/joints: Unremarkable. IMPRESSION: Opacification in the left lung base may represent atelectasis or pneumonia.
[2021-12-09 09:05] VITALS: BP 139/102; PULSE 93; RESP 21; O2SAT 98
--- NOTE | 2021-12-09 09:08 | HMH.EDGENADL ---
Discharge Plan Disposition Patient Disposition: Home, Self-Care Condition: Fair Prescriptions Prescriptions: New prednisone 20 mg tablet 40 mg PO DAILY 5 Days Qty: 10 0RF azithromycin 250 mg tablet 250 mg PO DAILY 6 Days Qty: 6 0RF Rx Instructions: take 2 tabs on day 1 start on day 2 of therapy No Action albuterol sulfate 90 mcg/actuation HFA aerosol inhaler 1 puff IH Q6HP PRN (Reason: Shortness Of Breath) Qty: 8.5 10RF allopurinol 100 mg tablet 100 mg PO DAILY Qty: 90 3RF fluticasone propionate 110 mcg/actuation HFA aerosol inhaler 1 puff IH BID Qty: 12 10RF hydroxyzine pamoate 25 mg capsule 25 mg PO HS Qty: 90 3RF levothyroxine 25 mcg capsule 25 mcg PO DAILY Qty: 90 3RF lisinopril 10 mg tablet 10 mg PO DAILY Qty: 90 3RF metoprolol succinate 100 mg tablet extended release 24 hr 100 mg PO DAILY Qty: 90 3RF omeprazole 20 mg tablet,delayed release (DR/EC) 20 mg PO DAILY Qty: 90 3RF methylprednisolone [Medrol (Charlie)] 4 mg tablets,dose pack See Rx Instructions PO PER PKG DIR Qty: 21 0RF Rx Instructions: PO PER PKG DIR cyclobenzaprine 10 MG tablet 10 mg PO BIDP PRN (Reason: Muscle Spasm) Qty: 20 0RF Referrals Follow up/Referrals: Ibrahima Cooper MD [Primary Care Provider] - See instructions Activity Restrictions/Add. Instructions Additional Instructions/Restrictions: You have been evaluated for cough and shortness of breath. Diagnosed with atypical pneumonia. Please take antibiotics and steroids as prescribed. Tylenol or ibuprofen for aches, pains, fever. Stay hydrated. Follow-up with your primary care doctor in 1 to 2 days for symptom recheck. Return to the emergency department at once for any new or worsening symptoms, chest pain, difficulty breathing or other concerns. Clinical Impressions Clinical Impression: Atypical pneumonia Instructions Patient Instructions: DI for Atypical Pneumonia Discharge ED Provider: Kaleigh Ellison Adult HPI General Chief complaint: Upper Respiratory Infection Stated complaint: sob Time Seen by Provider: 12/09/21 08:57 History of Present Illness HPI narrative: 56-year-old female presenting to the emergency department with cough, congestion, shortness of breath. Symptoms started yesterday morning. When she woke up felt generally unwell, sinus congestion and generalized malaise. Symptoms got worse yesterday evening and this morning. She feels short of breath. Feels like she has significant phlegm, but cough is unable to get it up. She was exposed to someone who was sick, her grandson earlier this week. He was not diagnosed with any particular illness, just an upper respiratory infection. She has had COVID infection. Has not received the COVID-vaccine or the flu vaccine. Uses her inhaler occasionally as needed. No other medications prior to arrival. Has chest tightness with cough. No chest pain at rest. Related Data Previous Rx's Medication Instructions Recorded cyclobenzaprine 10 mg tablet 10 mg PO BIDP PRN Muscle Spasm #20 05/20/21 tabs albuterol sulfate 90 mcg/actuation 1 puff inhalation Q6HP PRN 11/03/21 aerosol inhaler Shortness Of Breath #8.5 grams allopurinol 100 mg tablet 100 mg PO DAILY gout #90 tabs 11/03/21 fluticasone propionate 110 1 puff inhalation BID Breathing 11/03/21 mcg/actuation HFA aerosol inhaler problems #12 grams hydroxyzine pamoate 25 mg capsule 25 mg PO HS sleep #90 caps 11/03/21 levothyroxine 25 mcg capsule 25 mcg PO DAILY THYROID #90 caps 11/03/21 lisinopril 10 mg tablet 10 mg PO DAILY High blood pressure 11/03/21 #90 tabs methylprednisolone 4 mg tablets in See Rx Instructions PO PER PKG DIR 11/03/21 a dose pack (Medrol (Charlie)) #21 tabs metoprolol succinate 100 mg 100 mg PO DAILY Hypertension #90 11/03/21 tablet,extended release 24 hr tabs omeprazole 20 mg tablet,delayed 20 mg PO DAILY GERD #90 tabs 11/03/21 release azithromycin 250 mg tablet 250
[2021-12-09 09:09] LABS: Coronavirus 19, PCR Not Detected (NotDetected); Influenza A, PCR Not Detected (NotDetected); Influenza B, PCR Not Detected (NotDetected)
--- NOTE | 2021-12-09 09:09 | PC.NURSE ---
ECG and labs obtained upon arrival
[2021-12-09 09:12] LABS: Basophils # 0.1 K/mm3 (0-0.2); Basophils % 0.9 % (0.1-2.0); Eosinophils # 0.2 K/mm3 (0.0-0.4); Eosinophils % 1.7 % (0.1-12.0); Hematocrit 51.2 % (37.0-47.0); Hemoglobin 16.6 g/dL (12.2-16.2); Lymphocytes # 2.4 K/mm3 (0.7-4.5); Lymphocytes % 18.4 % (10-50); Mean Corpuscular HGB Conc 32.4 g/dL (31.8-35.4); Mean Corpuscular Hemoglobin 29.8 pg (27.0-31.2); Mean Corpuscular Volume 92.2 fl (81-99); Mean Platelet Volume 9.2 fl (7.4-10.4); Monocytes # 0.7 K/mm3 (0.1-1.0); Monocytes % 5.6 % (1.7-9.3); Neutrophils # 9.4 K/mm3 (1.8-7.8); Neutrophils % 73.3 % (37.0-80.0); Platelet Count 210 K/mm3 (142-424); Red Blood Count 5.55 M/mm3 (4.20-5.40); White Blood Count 12.9 K/mm3 (4.8-10.8)
[2021-12-09 09:15] VITALS: BP 139/102; PULSE 93; RESP 17; TEMP 36.8; O2SAT 97; BMI 28.1
[2021-12-09 09:16] LABS: Chloride 103 mmol/L (98-107)
[2021-12-09 09:17] LABS: Potassium 3.8 mmoL/L (3.5-5.1); Sodium 141 mmol/L (136-145)
[2021-12-09 09:19] LABS: Alanine Aminotransferase 26 U/L (12-78); Alkaline Phosphatase 134 U/L (38-126); Aspartate Amino Transferase 30 U/L (14-36); Bilirubin,Total 0.6 mg/dl (0.2-1.3); Blood Urea Nitrogen 15 mg/dl (7-17); Estimated Glomerular Filt Rate 103 ml/min (>60); GFR (African American) 125 ML/MIN (>60)
[2021-12-09 09:20] LABS: Albumin Level 4.1 g/dl (3.5-5.0); Albumin/Globulin Ratio 1.4 (1.1-1.8); Anion Gap 12.8 mEq/L (5-15); Calcium 8.6 mg/dl (8.4-10.2); Carbon Dioxide 29 mmol/L (22.0-30.0); Globulin 2.9 g/dL (1.3-3.2); Glucose 103 mg/dl (74-100)
[2021-12-09 09:30] VITALS: BP 156/99; PULSE 89; RESP 20; O2SAT 96
[2021-12-09 09:32] LABS: Troponin I < 0.01 ng/ml (0.00-0.034)
[2021-12-09 10:00] VITALS: BP 149/98; PULSE 91; RESP 20; O2SAT 97
[2021-12-09 10:30] VITALS: BP 166/105; PULSE 88; RESP 17; O2SAT 97
--- NOTE | 2021-12-09 11:17 | PC.NURSE ---
pt d/c at this time
[2021-12-09 11:23] VITALS: BP 143/99; PULSE 96; RESP 18; TEMP 36.8; O2SAT 98
== END 2021-12-09 11:24 | disposition home or self-care (01) ==
PROVIDERS: Emergency Provider Emergency Medicine; PCP Family Medicine
DX: J18.9 Pneumonia, unspecified organism (principal)
CPT/HCPCS: 71045; 80053; 84484; 85025; 93005; 99283; C9803; U0003; U0005

== ENCOUNTER 2022-01-03 10:06 | Emergency (ER) | payer OTHER, SELFPAY ==
[2022-01-03 10:15] VITALS: BP 133/64; PULSE 90; RESP 16; TEMP 36.5; O2SAT 97; BMI 31.3
[2022-01-03 11:31] VITALS: BP 149/98; PULSE 95; RESP 16; TEMP 36.5; O2SAT 99; BMI 31.3
--- NOTE | 2022-01-03 11:32 | PC.NURSE ---
ED MD AT BEDSIDE
--- NOTE | 2022-01-03 11:33 | HMH.EDGENADL ---
Discharge Plan Disposition Patient Disposition: Home, Self-Care Condition: Good Prescriptions Prescriptions: New ondansetron 4 mg tablet,disintegrating 4 mg PO Q8H PRN (Reason: nausea and vomiting) 4 Days Qty: 12 0RF No Action albuterol sulfate 90 mcg/actuation HFA aerosol inhaler 1 puff IH Q6HP PRN (Reason: Shortness Of Breath) Qty: 8.5 10RF allopurinol 100 mg tablet 100 mg PO DAILY Qty: 90 3RF fluticasone propionate 110 mcg/actuation HFA aerosol inhaler 1 puff IH BID Qty: 12 10RF hydroxyzine pamoate 25 mg capsule 25 mg PO HS Qty: 90 3RF levothyroxine 25 mcg capsule 25 mcg PO DAILY Qty: 90 3RF lisinopril 10 mg tablet 10 mg PO DAILY Qty: 90 3RF metoprolol succinate 100 mg tablet extended release 24 hr 100 mg PO DAILY Qty: 90 3RF omeprazole 20 mg tablet,delayed release (DR/EC) 20 mg PO DAILY Qty: 90 3RF methylprednisolone [Medrol (Charlie)] 4 mg tablets,dose pack See Rx Instructions PO PER PKG DIR Qty: 21 0RF Rx Instructions: PO PER PKG DIR cyclobenzaprine 10 MG tablet 10 mg PO BIDP PRN (Reason: Muscle Spasm) Qty: 20 0RF prednisone 20 mg tablet 40 mg PO DAILY 5 Days Qty: 10 0RF azithromycin 250 mg tablet 250 mg PO DAILY 6 Days Qty: 6 0RF Rx Instructions: take 2 tabs on day 1 start on day 2 of therapy Referrals Follow up/Referrals: Provider,Referral, MD [Primary Care Provider] - See instructions Activity Restrictions/Add. Instructions Additional Instructions/Restrictions: You were evaluated in the emergency department today. 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 Take Tylenol and ibuprofen at home as needed for pain and fever. Orally hydrate is much as possible. Return to the emergency department for any new or worsening symptoms. Clinical Impressions Clinical Impression: Viral infection Stand Alone Forms Stand Alone Forms: Work/School Release Instructions Patient Instructions: DI for Viral Syndrome Discharge ED Provider: Eileen Gonsalez General Adult HPI General Chief complaint: Upper Respiratory Infection Stated complaint: sob, body aches, cough, vomiting Time Seen by Provider: 01/03/22 11:18 Mode of Arrival: Ambulatory Source of Information: Patient Limitations: No Limitations Description of Symptoms (Recalled from ER Triage Doc. by RN): Pt reports fevers, chills, cough that is productive at times. Pt reports cough at times makes her vomit. Pt reports symtpoms began Saturday of last week. History of Present Illness HPI narrative: This patient is a 56-year-old female presented to the emergency department for evaluation of 2 days of flulike symptoms. She states she has had fever, chills, cough, body aches, headache, nausea, and vomiting. She states that she has taken Tylenol at home before which helped, however she has not taken anything recently. She denies any other concerns at this time. Nothing seems to make her symptoms better or worse. Her biggest concern is getting swabbed for work and getting a doctor's excuse. Related Data Previous Rx's Medication Instructions Recorded cyclobenzaprine 10 mg tablet 10 mg PO BIDP PRN Muscle Spasm #20 05/20/21 tabs albuterol sulfate 90 mcg/actuation 1 puff inhalation Q6HP PRN 11/03/21 aerosol inhaler Shortness Of Breath #8.5 grams allopurinol 100 mg tablet 100 mg PO DAILY gout #90 tabs 11/03/21 fluticasone propionate 110 1 puff inhalation BID Breathing 11/03/21 mcg/actuation HFA aerosol inhaler problems #12 grams hydroxyzine pamoate 25 mg capsule 25 mg PO HS sleep #90 caps 11/03/21 levothyroxine 25 mcg capsule 25 mcg PO DAILY THYROID #90 caps 11/03/21 lisinopril 10 mg tablet 10 mg PO DAILY High blood pressure 11/03/21 #90 tabs methylprednisolone 4 mg tablets in See Rx Instructions PO PER PKG DIR 11/03/21 a dose pack (Medrol (Charlie)) #21 tabs metoprolol succinate 100 mg 100 mg PO DAILY Hypertension #90 11/03/21 tablet,extend
[2022-01-03 12:00] VITALS: BP 130/89; PULSE 78; O2SAT 95
[2022-01-03 12:09] LABS: Influenza A, PCR Not Detected (NotDetected); Influenza B, PCR Not Detected (NotDetected)
[2022-01-03 12:15] VITALS: BP 130/89; PULSE 78; RESP 18; TEMP 36.5; O2SAT 99
[2022-01-03 13:14] LABS: Coronavirus 19, PCR Detected (NotDetected)
--- NOTE | 2022-01-03 20:16 | PC.NURSE ---
attempted to call pt with swab results, no answer, no voicemail available.
== END 2022-01-03 12:15 | disposition home or self-care (01) ==
LOC: UTC 11:16 → ER 11:17
PROVIDERS: Emergency Provider Emergency Medicine
DX: U07.1 COVID-19
CPT/HCPCS: 99283; C9803; U0003; U0005

== ENCOUNTER 2022-07-31 18:32 | Emergency (ER) | payer OTHER, SELFPAY ==
[2022-07-31 18:45] VITALS: BP 176/106; PULSE 100; RESP 18; TEMP 36.3; O2SAT 98; BMI 31.3
--- NOTE | 2022-07-31 18:59 | HMH.EDGENADL ---
Discharge Plan Disposition Patient Disposition: Home, Self-Care Prescriptions Prescriptions: No Action levothyroxine 25 mcg capsule 25 mcg PO DAILY Qty: 90 3RF lisinopril 10 mg tablet 10 mg PO DAILY Qty: 90 3RF metoprolol succinate 100 mg tablet extended release 24 hr 100 mg PO DAILY Qty: 90 3RF prednisone 10 mg tablet 10 mg PO DAILY aspirin 81 mg Tablet 81 mg PO DAILY Referrals Follow up/Referrals: Ibrahima Cooper MD [Primary Care Provider] - See instructions Activity Restrictions/Add. Instructions Additional Instructions/Restrictions: You had evidence of corneal epithelial injury and traumatic keratitis secondary to scratching her eye and the foreign body which there is no evidence of on physical exam at this point. 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 Clinical Impressions Clinical Impression: Traumatic keratitis, Corneal abrasion, Traumatic conjunctivitis Discharge ED Provider: Mauro Barrera General Adult HPI General Chief complaint: Eye Problems Stated complaint: eye painful and red Time Seen by Provider: 07/31/22 18:59 Mode of Arrival: Ambulatory Source of Information: Patient Limitations: No Limitations Description of Symptoms (Recalled from ER Triage Doc. 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 She was working outside and had some dust and dirt debris that flew into her eye and she felt a foreign body sensation and irrigated her eye and has been scratching her eye pretty violently from her history with a foreign body sensation and presents today with inability to be alleviated from the symptoms. Denies any changes in vision or any other injuries. This happened just several hours prior to arrival. Related Data Home Medications Medication Instructions Recorded Confirmed aspirin 81 mg tablet 81 mg PO DAILY . 07/31/22 07/31/22 prednisone 10 mg tablet 10 mg PO DAILY . 07/31/22 07/31/22 Previous Rx's Medication Instructions Recorded levothyroxine 25 mcg capsule 25 mcg PO DAILY THYROID #90 caps 11/03/21 lisinopril 10 mg tablet 10 mg PO DAILY High blood pressure 11/03/21 #90 tabs metoprolol succinate 100 mg 100 mg PO DAILY Hypertension #90 11/03/21 tablet,extended release 24 hr tabs Allergies Allergy/AdvReac Type Severity Reaction Status Date / Time No Known Allergies Allergy Verified 07/31/22 18:56 [facility] Disclaimer: The information contained in this section may have been updated after the patient was seen, as this information can be updated by other users. Social History Smoking Status: Never smoker alcohol intake: former substance use type: denies use current occupational status: other Travel in the last 8 weeks: None current occupation: pending disability caffeine: No ROS Obtained: Yes All systems reviewed & no additional complaints except as documented Physical Exam General General appearance: alert Eye Eye exam: Present conjunctival redness, conjunctival injection and other (No iritis or hyphema) Respiratory Respiratory exam: Present normal lung sounds bilaterally; Absent respiratory distress Cardiovascular Cardiovascular exam: Present regular rate and bradycardia Neurological Exam Neurological exam: Present alert and oriented X3 Medical Decision Making Brady Inquiry Pt receiving controlled substance: No Vital Signs: 07/31/22 18:45 Temperature 97.4 F L Temperature Source Oral Pulse Rate [Left Radial] 100 H Respiratory Rate 18 Blood Pressure [Right Arm] 176/106 H
[2022-07-31 19:42] VITALS: BP 120/70; PULSE 75; RESP 19; TEMP 36.8; O2SAT 98
== END 2022-07-31 19:44 | disposition home or self-care (01) ==
PROVIDERS: Emergency Provider Student in an Organized Health Care Education/Training Program; PCP Family Medicine
DX: H10.31 Unspecified acute conjunctivitis, right eye (principal); H16.101 Unspecified superficial keratitis, right eye; S05.01XA Injury of conjunctiva and corneal abrasion without foreign body, right eye, initial encounter; W22.8XXA Striking against or struck by other objects, initial encounter
CPT/HCPCS: 99283; 99284

== ENCOUNTER 2023-06-27 01:15 | Emergency (ER) | payer OTHER, SELFPAY ==
[2023-06-27 01:17] VITALS: BP 175/111; PULSE 85; RESP 18; TEMP 36.6; O2SAT 96; BMI 31.3
--- NOTE | 2023-06-27 01:31 | HMH.EDGENADL ---
Discharge Plan Disposition Patient Disposition: Home, Self-Care Prescriptions Prescriptions: New amoxicillin-pot clavulanate 875-125 mg tablet 1 tab PO BID 7 Days Qty: 14 0RF No Action levothyroxine 25 mcg tablet See Rx Instructions .ROUTE .COMPLEX Qty: 90 0RF Dose Instruction: TAKE 1 TABLET BY MOUTH ONCE DAILY FOR THYROID Rx Instructions: TAKE 1 TABLET BY MOUTH ONCE DAILY FOR THYROID metoprolol succinate 100 mg tablet extended release 24 hr See Rx Instructions .ROUTE .COMPLEX Qty: 90 0RF Dose Instruction: TAKE 1 TABLET BY MOUTH DAILY FOR HIGH BLOOD PRESSURE Rx Instructions: TAKE 1 TABLET BY MOUTH DAILY FOR HIGH BLOOD PRESSURE lisinopril 10 mg tablet See Rx Instructions .ROUTE .COMPLEX Qty: 90 0RF Dose Instruction: TAKE 1 TABLET BY MOUTH DAILY FOR HIGH BLOOD PRESSURE Rx Instructions: TAKE 1 TABLET BY MOUTH DAILY FOR HIGH BLOOD PRESSURE prednisone 10 mg tablet 10 mg PO DAILY aspirin 81 mg Tablet 81 mg PO DAILY Referrals Follow up/Referrals: Ibrahima Cooper MD [Primary Care Provider] - See instructions Activity Restrictions/Add. Instructions Additional Instructions/Restrictions: Please take antibiotics as prescribed for treatment of dental infection. Please follow-up with dentistry soon as possible. Please take Tylenol and ibuprofen and use Orajel as needed for pain. Clinical Impressions Clinical Impression: Pain, dental, Dental infection Discharge ED Provider: Omero Mason Adult HPI General Chief complaint: Dental/Oral Stated complaint: absess tooth, swelling and pain throughout mouth Time Seen by Provider: 06/27/23 01:18 Mode of Arrival: Ambulatory Source of Information: Patient Limitations: No Limitations Description of Symptoms (Recalled from ER Triage Doc. by RN): Patient reports that she had fillings fall out of some teeth on the left upper and right lower mouth and that the pain has increased today significantly. She has a dental appointment in a few weeks but the pain is severe right now. History of Present Illness HPI narrative: 57-year-old female presents with dental pain. She reports that she has had fillings fallout in a posterior left maxillary tooth and a posterior right mandibular tooth. She reports that she has been dealing with pain intermittently at the sites for the last couple of months but has been worsening for the last few days. She reports intermittent drainage. Denies fever. She has a dentist appointment later this month. Not yet been on any antibiotics. Related Data Home Medications Medication Instructions Recorded Confirmed aspirin 81 mg tablet 81 mg PO DAILY . 07/31/22 07/31/22 prednisone 10 mg tablet 10 mg PO DAILY . 07/31/22 07/31/22 Previous Rx's Medication Instructions Recorded levothyroxine 25 mcg tablet See Rx Instructions .Route 11/28/22 .COMPLEX #90 tabs metoprolol succinate 100 mg See Rx Instructions .Route 01/07/23 tablet,extended release 24 hr .COMPLEX #90 tabs lisinopril 10 mg tablet See Rx Instructions .Route 01/28/23 .COMPLEX #90 tabs amoxicillin 875 mg-potassium 1 tab PO BID 7 days #14 tabs 06/27/23 clavulanate 125 mg tablet Allergies Allergy/AdvReac Type Severity Reaction Status Date / Time No Known Allergies Allergy Verified 07/31/22 18:56 [facility] Disclaimer: The information contained in this section may have been updated after the patient was seen, as this information can be updated by other users. Social History Smoking Status: Never smoker alcohol intake: former substance use type: denies use current occupational status: other Travel in the last 8 weeks: None current occupation: pending disability caffeine: No ROS Obtained: Yes All systems reviewed & no additional complaints except as documented Physical Exam General General appearance: alert and in no apparent distress Head Head exam: atraumatic and normocephalic Eye Eye exam: Present normal appearance, PERRL and EOMI ENT ENT exam: Present normal oropharynx, normal external ear exam and other (Fractured/eroded left maxillary posterior tooth, posterior right mandibular tooth, mild surrounding erythema, no palpable abscess) Neck Neck exam: Present normal inspection and full ROM Chest Chest inspection: Present normal inspection and symmetric chest wall rise; Absent tenderness Respiratory Respiratory exam: Present normal lung sounds bilaterally; Absent respiratory distress Cardiovascular Cardiovascular exam: Present regular rate and normal rhythm Abdominal Exam Abdominal exam: Present soft; Absent distention, tenderness or guarding Extremities Exam Extremities exam: Present normal inspection; Absent edema or joint swelling Back Exam Back exam: Present normal inspection; Absent tenderness Neurological Exam Neurological exam: Present alert and oriented X3; Absent motor sensory deficit Psychiatric Psychiatric exam: Present normal affect and normal mood Skin Skin exam: Present warm, dry and normal color Lymphatic Lymphatic Findings: no adenopathy Medical Decision Making Medical Records Medical records reviewed: Yes I reviewed the patient's medical records. Brady Inquiry Pt receiving controlled substance: No Brady was queried for this patient: No Vital Signs: 06/27/23 01:17 Temperature 97.8 F Temperature Source Oral Pulse Rate [Left Radial] 85 Respiratory Rate 18 Blood Pressure [Right Arm] 175/111 H Blood Pressure Mean [Right Arm] 132 02 Sat by Pulse Oximetry 96 Oxygen Delivery Method Room Air Lab Data Lab results reviewed: Yes I reviewed the patient's lab results. Orders (Tests/Meds): ED MEDICATIONS Discontinued Medications Generic Name Dose Route Start Last Admin Trade Name Akua PRN Reason Stop Dose Admin Acetaminophen 1,000 mg 06/27/23 01:28 Acetaminophen 500mg Tab PO 06/27/23 01:29 ONCE ONE Amoxicillin/Clavulanate Potassium 1 each 06/27/23 01:28 Amoxicillin/Clavulanate Potassium 875/125mg Tablet PO 06/27/23 01:29 ONCE ONE Ibuprofen 600 mg 06/27/23 01:28 Ibuprofen 600 Mg Tablet PO 06/27/23 01:29 ONCE ONE Medical Decision Narrative: 57-year-old female with history as reported above presents with acute on chronic multifocal dental pain, worsening. History was obtained interactive discussion with patient. On arrival, patient is [afebrile, hemodynamically stable, satting appropriately, alert, oriented x4, GCS 15], moving all extremities spontaneously. Full physical exam performed and significant for multifocal poor dentition. No palpable abscess, no significant facial or intraoral swelling. Differential includes but is not limited to odontogenic infection, pulpitis, abscess, cellulitis, Lemierre's, Mauricio. Patient was given p.o. Augmentin, Tylenol, ibuprofen for symptomatic management and correction of underlying abnormalities. CT imaging was considered, but deemed unnecessary due to history and exam. Given patient history, exam and workup, patient's presentation most likely represents odontogenic infection. Patient was discharged in stable condition with prescription for Augmentin. Recommended she follow-up with dentistry as soon as possible. Return precautions given for Procedures Risk/Benefits of Procedure(s) Were Explained: Yes Critical Care Critical Care Time Critical Care Time: No
[2023-06-27] MEDS: ACETAMINOPHEN 500MG TAB 1000 MG PO (01:36)
[2023-06-27] MEDS: IBUPROFEN 600 MG TABLET PO (01:36)
[2023-06-27] MEDS: AMOXICILLIN/CLAVULANATE POTASSIUM 875/125MG TABLET 1 EACH PO (01:36)
[2023-06-27 01:46] VITALS: BP 151/108; PULSE 84; RESP 18; TEMP 36.6; O2SAT 95
== END 2023-06-27 01:47 | disposition home or self-care (01) ==
PROVIDERS: Emergency Provider Emergency Medicine; PCP Family Medicine
DX: K04.7 Periapical abscess without sinus (principal); K08.89 Other specified disorders of teeth and supporting structures
CPT/HCPCS: 99283

== ENCOUNTER 2023-09-25 12:13 | Outpatient (CLI) | payer OTHER, SELFPAY ==
[2023-09-25 12:34] LABS: Albumin Level 4.1 g/dl (3.5-5.0)
[2023-09-25 12:35] LABS: Chloride 103 mmol/L (98-107); Potassium 4.3 mmoL/L (3.5-5.1); Sodium 137 mmol/L (136-145)
[2023-09-25 12:37] LABS: Bilirubin,Unconjugated 0.6 mg/dL (0.0-1.1); Blood Urea Nitrogen 18 mg/dl (7-17); Estimated Glomerular Filt Rate 74 ml/min (>60); GFR (African American) 89 ML/MIN (>60)
[2023-09-25 12:38] LABS: Alanine Aminotransferase 40 U/L (12-78); Alkaline Phosphatase 101 U/L (38-126); Anion Gap 8.3 mEq/L (5-15); Aspartate Amino Transferase 34 U/L (14-36); Bilirubin,Indirect 0.4 mg/dL (0.0-0.9); Bilirubin,Total 0.4 mg/dl (0.2-1.3); Calcium 9.3 mg/dl (8.4-10.2); Carbon Dioxide 30 mmol/L (22.0-30.0); Chol/HDL Ratio 2.3 (1-3.5); Cholesterol 147 mg/dl (140-200); Glucose 128 mg/dl (74-100); HDL Cholesterol 63 mg/dl (40-60); Magnesium 1.6 mg/dl (1.6-2.3); Total Protein,Serum 6.8 g/dl (6.3-8.2); Triglycerides 70 mg/dl (30-150); VLDL Cholesterol 14 mg/dL (0-40)
[2023-09-25 12:39] LABS: Basophils # 0.1 K/mm3 (0-0.2); Basophils % 0.9 % (0.1-2.0); Eosinophils # 0.2 K/mm3 (0.0-0.4); Eosinophils % 3.3 % (0.1-12.0); Hematocrit 51.3 % (37.0-47.0); Hemoglobin 16.4 g/dL (12.2-16.2); Lymphocytes # 2.3 K/mm3 (0.7-4.5); Mean Corpuscular HGB Conc 31.9 g/dL (31.8-35.4); Mean Corpuscular Hemoglobin 31.2 pg (27.0-31.2); Mean Corpuscular Volume 97.8 fl (81-99); Mean Platelet Volume 8.7 fl (7.4-10.4); Monocytes # 0.3 K/mm3 (0.1-1.0); Monocytes % 4.8 % (1.7-9.3); Neutrophils # 4.2 K/mm3 (1.8-7.8); Neutrophils % 59.1 % (37.0-80.0); Platelet Count 201 K/mm3 (142-424); Red Blood Count 5.24 M/mm3 (4.20-5.40); Red Cell Distribution Width 14.3 % (11.5-17.5); White Blood Count 7.1 K/mm3 (4.8-10.8)
[2023-09-25 12:49] LABS: Direct LDL Cholesterol 65.42 mg/dL (100-129)
[2023-09-25 13:11] LABS: Thyroid Stimulating Hormone 3.38 uIU/mL (0.465-4.68)
[2023-09-25 13:31] LABS: Free T4 (Free Thyroxine) 1.25 ng/dl (0.78-2.19)
== END 2023-09-25 23:59 | disposition home or self-care (01) ==
LOC: RAD 12:14
PROVIDERS: PCP Internal Medicine; Visit Provider Physician Assistant
DX: I71.21 Aneurysm of the ascending aorta, without rupture (principal); I20.89 Other forms of angina pectoris; R06.00 Dyspnea, unspecified
CPT/HCPCS: 36415; 80048; 80061; 80076; 83735; 84439; 84443; 85025

== ENCOUNTER 2023-10-03 14:21 | Outpatient (CLI) | payer OTHER, SELFPAY ==
--- NOTE | 2023-10-03 14:29 | CT_ITS ---
FINAL REPORT TECHNIQUE: Axial CT images of the abdomen were obtained with IV contrast only. Coronal reformatted images were also obtained. This study was performed with techniques to keep radiation doses as low as reasonably achievable (ALARA). Individualized dose reduction techniques using automated exposure control or adjustment of mA and/or kV according to the patient''s size were employed. CLINICAL HISTORY: AAA COMPARISON: 07/07/2021 FINDINGS: There is a small hiatal hernia. The liver has an unremarkable appearance, without evidence of mass. There is gallbladder wall thickening which is nonspecific. There is no evidence of biliary ductal dilatation. The pancreas appears normal. The spleen size is within normal limits. The previously noted left upper pole presumed renal cyst is not seen on the current exam. There is a less than 1 cm cyst in the lower pole of the left kidney with no follow-up recommended this is likely benign. There is no evidence of abdominal aortic aneurysm. The aorta measures 1.7 cm. There is no evidence of dissection. There is no evidence of adenopathy. No abnormal fluid collection is seen. No localized inflammatory processes identified. IMPRESSION: No evidence of abdominal aortic aneurysm. Reviewed, Interpreted and Dictated by Benjamin Harding III, MD Transcribed by Maria De Jesus Oro Authenticated and [facility]
--- NOTE | 2023-10-03 14:33 | CT_ITS ---
FINAL REPORT CLINICAL HISTORY: AAA, chest pain COMPARISON: 11/09/2021 FINDINGS: Thin section axial CT images of the chest were obtained with contrast. 3D reformatted images were also obtained. This study was performed with techniques to keep radiation doses as low as reasonably achievable (ALARA). Individualized dose reduction techniques using automated exposure control or adjustment of mA and/or kV according to the patient''s size were employed. Motion artifact is noted. There is no evidence of pulmonary embolism. There is a 4.8 cm ascending aortic aneurysm, previously measured 4.6 cm. There is no evidence of mediastinal or hilar mass or adenopathy. There is no evidence of pulmonary mass or nodule. Mild atelectasis is noted in the lungs. A ruptured left breast implant is noted. IMPRESSION: 4.8 cm ascending aortic aneurysm. No evidence of pulmonary embolism. Mild atelectasis in the lungs. Reviewed, Interpreted and Dictated by Benjamin Harding III, MD Transcribed by Maria De Jesus Oro Authenticated and . [facility]
[2023-10-03] MEDS: 0.9 % SODIUM CHLORIDE 50 ML VIAL IV (14:50)
[2023-10-03] MEDS: SODIUM CHLORIDE 0.9% 10ML SYR (RAD ONLY) 10 ML IV (14:50)
[2023-10-03] MEDS: IOPAMIDOL-370 (76%);100ML BOTTLE 100 ML IV (14:50)
== END 2023-10-03 23:59 | disposition home or self-care (01) ==
LOC: RAD 14:23
PROVIDERS: PCP Internal Medicine; Visit Provider Physician Assistant
DX: I71.21 Aneurysm of the ascending aorta, without rupture (principal)
CPT/HCPCS: 71275; 74160; Q9967

== ENCOUNTER 2024-03-18 14:01 | Outpatient (CLI) | payer OTHER, SELFPAY ==
[2024-03-18 19:13] LABS: Microalbumin/Creatinine Ratio 28.8
[2024-03-18 19:30] LABS: Creatinine,Urine Random 61 mg/dL (Not Estab.)
== END 2024-03-18 23:59 | disposition home or self-care (01) ==
LOC: LAB.DROPOF 03-19 10:15
PROVIDERS: PCP Internal Medicine; Visit Provider Internal Medicine
DX: E11.9 Type 2 diabetes mellitus without complications (principal)
CPT/HCPCS: 82043; 82570

== ENCOUNTER 2024-07-09 21:32 | Emergency (ER) | payer OTHER, SELFPAY ==
[2024-07-09 21:48] VITALS: BP 147/91; PULSE 57; RESP 18; TEMP 36.8; O2SAT 100; BMI 32.9
--- NOTE | 2024-07-09 21:55 | XR_ITS ---
PROCEDURE INFORMATION: Exam: XR Chest Exam date and time: 07/09/2024 10:06 PM Age: 58 years old Clinical indication: Injury or trauma; Other: Fell onto air compressor. Blunt trauma (contusions or hematomas) TECHNIQUE: Imaging protocol: Radiologic exam of the chest. Views: 2 views. COMPARISON: CT ANGIO CHEST 10/03/2023 2:37 PM FINDINGS: Lungs: Unremarkable. No consolidation. Pleural spaces: Unremarkable. No pleural effusion. No pneumothorax. Heart/Mediastinum: Unremarkable. No cardiomegaly. Bones/joints: Unremarkable. IMPRESSION: No acute findings.
--- NOTE | 2024-07-09 21:56 | PC.NURSE ---
verbal order received to place chest x-ray order from [place] juan.
--- NOTE | 2024-07-09 22:44 | HMH.EDGENADL ---
Discharge Plan Disposition Patient Disposition: Home, Self-Care Condition: Good Prescriptions Prescriptions: New lidocaine 5 % adhesive patch,medicated See Rx Instructions .ROUTE .COMPLEX Qty: 15 0RF Rx Instructions: Apply to most painful area and leave on for 12 hours. Remove and leave off for 12 hours before using a new patch. No Action allopurinol 100 mg tablet 100 mg PO DAILY Qty: 90 3RF levothyroxine 25 mcg tablet 25 mcg PO DAILY 90 Days Qty: 90 3RF lisinopril 20 mg tablet 20 mg PO DAILY Qty: 60 2RF metoprolol succinate 100 mg tablet extended release 24 hr See Rx Instructions .ROUTE .COMPLEX Qty: 90 3RF Dose Instruction: TAKE 1 TABLET BY MOUTH DAILY FOR HIGH BLOOD PRESSURE Rx Instructions: TAKE 1 TABLET BY MOUTH DAILY FOR HIGH BLOOD PRESSURE Airsupra 90-80 mcg/actuation HFA aerosol inhaler 2 inh inhalation BID Qty: 10.7 8RF aspirin 81 mg Tablet 81 mg PO DAILY Referrals Follow up/Referrals: Provider,Referral, MD [Primary Care Provider] - See instructions Activity Restrictions/Add. Instructions Additional Instructions/Restrictions: You were evaluated in the ER and are appropriate for discharge at this time. Continue taking Tylenol, ibuprofen if needed for pain. Do not exceed the recommended dose on the bottle. Drink water and eat a small snack each time you take these medications to avoid side effects. Use the prescribed lidocaine patch as directed. Follow-up with your primary care doctor for reevaluation. Return to the ER with any new, worsening, or otherwise concerning symptoms. Clinical Impressions Clinical Impression: Fall, Left-sided chest wall pain Print Language Print Language: Korean Discharge ED Provider: Joss Aguilar Adult HPI General Chief complaint: PAIN Stated complaint: AO [id number]/08/[id number] injury chest,ribs Time Seen by Provider: 07/09/24 22:37 Mode of Arrival: Ambulatory Source of Information: Patient Description of Symptoms (Recalled from ER Triage Doc. by RN): Pt states she tripped in her garage and landed onto a compressor. Pt states it knocked the wind out of you and since she has had difficulty breathing, and pain when she takes a breath. No deformities noted, bilateral breath sounds History of Present Illness HPI narrative: 58-year-old female with known thoracic aortic aneurysm which is currently just being monitored, history of asthma, hypertension presents to the ER with anterior chest pain. Patient reports last night she tripped in her garage and landed on the handle of a compressor. She was struck directly across the anterior chest wall at the level of the mid breast. She reports it knocked the wind out of her. She has had difficulty breathing since that time and pain when she takes a deep breath. Patient reports it has been approximately 24 hours since the time of her injury and she has been taking Advil without improvement of symptoms. She reports she is mostly worried about the fact she has a known thoracic aortic aneurysm and was concerned about the persistent pain in her chest. She states it does not radiate to the back and she has not had any tearing pain. No history of blood clots. She reports no bruising or deformity on her chest. No other injuries or concerns. Related Data Home Medications ?Medication ?Instructions ?Recorded ?Confirmed aspirin 81 mg tablet 81 mg PO DAILY . 07/31/22 06/25/24 Previous Rx's ?Medication ?Instructions ?Recorded albuterol 90 mcg-budesonide 80 2 inh inhalation BID Asthma #10.7 02/25/24 mcg/actuation HFA aerosol inhaler grams (Airsupra) metoprolol succinate 100 mg See Rx Instructions .Route 02/25/24 tablet,extended release 24 hr .COMPLEX #90 tabs allopurinol 100 mg tablet 100 mg PO DAILY #90 tabs 03/18/24 levothyroxine 25 mcg tablet 25 mcg PO DAILY 90 days #90 tabs 03/18/24 lisinopril 20 mg tablet 20 mg PO DAILY #60 tabs 03/18/24 lidocaine 5 % topical patch See Rx Instructions topical 07/10/24 .COMPLEX #15 ea Allergies Allergy/AdvReac Type Severity Reaction Status Date / Time No Known Allergies Allergy Verified 06/25/24 13:30 [facility] Disclaimer: The information contained in this section may have been updated after the patient was seen, as this information can be updated by other users. Medical History Dyspnea Atypical angina Ascending aortic aneurysm Family History Father Coronary artery disease Hypertension Grandmother Diabetes Hypertension Grandfather Hypertension Social History Smoking Status: Never smoker alcohol intake: former substance use type: denies use current occupational status: other Travel in the last 8 weeks?: None current occupation: pending disability caffeine: No Have you lived/traveled outside US in past 30 days?: No Contact w/someone who lives/traveled outside US past 30 days?: No Exposure to someone with infectious disease in past 14 days?: No Do you have a fever (greater than 100.4 F or 38 C)?: No Have you tested positive for COVID-19?: No Exposed to someone with COVID-19 in past 14 days?: No Do you have a sore throat?: No Do you have a cough?: No Do you have any weakness?: No Do you have any diarrhea?: No Are you experiencing any unusual bleeding?: No Do you have any muscle aches/pain?: No Do you have any abdominal pain?: No Are you experiencing loss of taste or smell?: No Other Medical History Have you received the Flu Vaccine for this season: No Have you received the Pneumonia Vaccine: No ROS Obtained: Yes Systems reviewed as appropriate & no additional complaints except as documented Per HPI Physical Exam General General appearance: alert and in no apparent distress Head Head exam: atraumatic and normocephalic Eye Eye exam: Present PERRL and EOMI ENT ENT exam: Present mucous membranes moist Neck Neck exam: Present normal inspection and full ROM Chest Chest inspection: Present symmetric chest wall rise and tenderness (Left anterior lateral chest wall tenderness at approximately the level of the sixth through 8th ribs with no deformity or bruising. No other areas of tenderness or abnormality.) Respiratory Respiratory exam: Present normal lung sounds bilaterally; Absent respiratory distress, wheezes or stridor Cardiovascular Cardiovascular exam: Present regular rate and normal rhythm Abdominal Exam Abdominal exam: Present soft; Absent distention, tenderness, guarding or rebound Extremities Exam Extremities exam: Present full ROM; Absent edema Neurological Exam Neurological exam: Present alert and oriented X3; Absent motor sensory deficit Psychiatric Psychiatric exam: Present normal affect and normal mood Skin Skin exam: Present warm and dry Medical Decision Making Medical Records Medical records reviewed: Yes I reviewed the patient's medical records. Screening: Per USPSTF and CDC recommendations, given the prevalence of disease in our region, it is our hospital?s policy to screen for HIV and viral Hepatitis for all patients aged 18 and over and those with ongoing risk factors. MR Comment: Most recent CTA chest from September 2023 demonstrates patient had a 4.8 cm ascending aortic aneurysm. Brady Inquiry Pt receiving controlled substance: No Vital Signs: 07/09/24 21:48 Temperature 98.3 F Temperature Source Oral Pulse Rate [Right] 57 L Respiratory Rate 18 Blood Pressure [Right Arm] 147/91 H Blood Pressure Mean [Right Arm] 109 Blood Pressure Source [Right Arm] Automatic Cuff Blood Pressure Position [Right Arm] Sitting 02 Sat by Pulse Oximetry 100 Oxygen Delivery Method Room Air Lab Data Lab Results 07/09/24 23:00: WBC 7.2, RBC 5.04, Hgb 15.2, Hct 47.0, MCV 93.3, MCH 30.2, MCHC 32.3, RDW 14.5, Plt Count 210, MPV 11.0 H, Neut % (Auto) 43.6, Lymph % (Auto) 41.4, [place] % (Auto) 10.9 H, Eos % (Auto) 2.9, Baso % (Auto) 0.8, Neut # (Auto) 3.2, Lymph # (Auto) 3.0, [place] # (Auto) 0.8, Eos # (Auto) 0.2, Baso # (Auto) 0.1, PT 10.3, INR 0.91, Sodium 139, Potassium 4.1, Chloride 106, Carbon Dioxide 29, Anion Gap 8.1, BUN 19 H, Creatinine 0.80, Estimated Creat Clear 112, Estimated GFR 74, Est GFR ( Amer) 89, Glucose 91, Calcium 9.1, Total Bilirubin 0.3, AST 30, ALT 31, Alkaline Phosphatase 101, Troponin I < 0.01, NT-Pro-B Natriuret Pep 107, Total Protein 7.0, Albumin 4.7, Globulin 2.3, Albumin/Globulin Ratio 2.0 H, Serum HCG, Qual Negative 07/09/24 23:00 07/09/24 23:00 Orders (Tests/Meds): ED MEDICATIONS Discontinued Medications Generic Name Dose Route Start Last Admin Trade Name Freq PRN Reason Stop Dose Admin Acetaminophen 1,000 mg 07/09/24 23:00 07/09/24 23:15 Acetaminophen 500mg Tab PO 07/09/24 23:01 1,000 mg ONCE ONE Administration Iopamidol 80 ml 07/09/24 23:49 07/09/24 23:50 Iopamidol-370 (76%);100ml Bottle IV 07/09/24 23:50 80 ml ONCE ONE Administration Lidocaine 1 each 07/09/24 23:00 07/09/24 23:49 Lidocaine 5% Transdermal Patch TD 07/09/24 23:01 Not Given ONCE ONE Sodium Chloride 50 ml 07/09/24 23:49 07/09/24 23:50 0.9 % Sodium Chloride 50 Ml Vial IV 07/09/24 23:50 50 ml ONCE ONE Administration Sodium Chloride 10 ml 07/09/24 23:49 07/09/24 23:50 Sodium Chloride 0.9% 10ml Syr (Rad Only) IV 07/09/24 23:50 10 ml ONCE ONE Administration ORDERS Category Date Time Status CT angio chest - dissection Stat Cat Scan 07/09/24 22:49 Completed Chest XR 2 view (NOT portable) [XR chest 2V] Stat Exams 07/09/24 21:55 Completed Complete Blood Count Auto Diff Stat Lab 07/09/24 23:00 Completed Comprehensive Metabolic Panel Stat Lab 07/09/24 23:00 Completed HCG Qualitative, Serum Stat Lab 07/09/24 23:00 Completed NT Pro Brain Natriuretic Pep. Stat Lab 07/09/24 23:00 Completed Prothrombin Time INR Stat Lab 07/09/24 23:00 Completed Troponin I Q3H Lab 07/10/24 02:00 Ordered Troponin I Q3H Lab 07/10/24 05:00 Ordered Troponin I Stat Lab 07/09/24 23:00 Completed HEART Score History (anamnesis): Slightly suspicious ECG: Normal Age: 45-65 years Risk factors: 1-2 risk factors Troponin: </= normal limit HEART Score: 2 Medical Decision Narrative: In summary, this 58-year-old female with comorbidities described in the HPI which may not be at goal therapy presents to the emergency department today with chest pain after fall and direct chest wall trauma. On initial evaluation patient is hemodynamically stable, afebrile, left anterior lateral chest wall tenderness without deformity or bruising as described in the physical exam, lungs clear bilaterally with good air movement, saturating well on room air, cardiac exam benign. Differential diagnosis includes but is not limited to musculoskeletal injury including spasm, strain, rib fracture, also considered the possibility of hemothorax, pneumothorax, injury to the already known thoracic aortic aneurysm, blunt cardiac trauma, ACS, PE. Based on these concerns, I ordered serum labs, cardiac workup, CT imaging. ECG personally interpreted demonstrates sinus rhythm, first-degree AV block, rate 62, left axis deviation, normal QTc, no STEMI. Patient received Tylenol for treatment. Lidocaine patch was ordered however there are not available in the entire facility so this was not administered. Labs personally reviewed demonstrate no leukocytosis or anemia, normal platelets, PT/INR normal, CMP nonactionable, initial troponin undetectably low which is significantly reassuring since patient has had 24 hours of symptoms and has benign ECG. Chest x-ray personally turbid it does not demonstrate acute intrathoracic abnormality, see radiology read for final interpretation. CTA personally interpreted does not demonstrate any evidence of aortic dissection, leak, or other acute intrathoracic injury. There is also no evidence of large PE. See radiology read for final interpretation. Previously known thoracic aortic aneurysm is stable and previous left breast implant rupture is similar appearing. On reassessment patient continues to be stable. She is appropriate for discharge at this time. She reports that in the past lidocaine patches have significantly helped her so this was prescribed. Patient was given instructions on symptomatic monitoring and management, follow up instructions, and return precautions for the emergency department. Patient indicated understanding and was discharged in stable condition. Critical Care Critical Care Time Critical Care Time: No
--- NOTE | 2024-07-09 22:49 | CT_ITS ---
PROCEDURE INFORMATION: Exam: CTA Chest With Contrast Exam date and time: 07/09/2024 11:43 PM Age: 58 years old Clinical indication: Chest wall pain; Additional info: 1day direct chest trauma at 6-8 rib known taa SOA TECHNIQUE: Imaging protocol: Computed tomographic angiography of the chest with contrast. Exam focused on the arteries. 3D rendering (Not supervised by radiologist): MIP and/or 3D reconstructed images were created by the technologist. Radiation optimization: All CT scans at this facility use at least one of these dose optimization techniques: automated exposure control; mA and/or kV adjustment per patient size (includes targeted exams where dose is matched to clinical indication); or iterative reconstruction. Contrast material: ISOVUE; Contrast volume: 80 ml; Contrast route: INTRAVENOUS (IV); COMPARISON: CT ANGIO CHEST 10/03/2023 2:37 PM FINDINGS: Pulmonary arteries: No central or segmental pulmonary arterial embolism identified. Aorta: Ascending thoracic aorta to 4.6 cm. No dissection. Lungs: Unremarkable. No consolidation. No masses. Pleural spaces: Unremarkable. No pneumothorax. No pleural effusion. Heart: Unremarkable. No cardiomegaly. No pericardial effusion. Lymph nodes: Unremarkable. No enlarged lymph nodes. Bones/joints: Unremarkable. No acute fracture. Soft tissues: Left intracapsular breast implant rupture. IMPRESSION: 1. No acute findings identified. No central or segmental pulmonary embolism identified 2. Similar ascending aortic aneurysm. 3. Similar left breast implant rupture.
[2024-07-09 23:11] LABS: Basophils # 0.1 K/mm3 (0-0.2); Basophils % 0.8 % (0.1-2.0); Eosinophils # 0.2 Kmm3 (0.0-0.4); Eosinophils % 2.9 % (0.1-12.0); Hemoglobin 15.2 g/dL (12.2-16.2); Immature Granulocytes # 0.03 10^3uL; Immature Granulocytes % 0.4 %; Lymphocytes % 41.4 % (10-50); Mean Corpuscular HGB Conc 32.3 g/dL (31.8-35.4); Mean Corpuscular Hemoglobin 30.2 pg (27.0-31.2); Mean Corpuscular Volume 93.3 fl (81-99); Monocytes # 0.8 K/mm3 (0.1-1.0); Monocytes % 10.9 % (1.7-9.3); Neutrophils # 3.2 K/mm3 (1.8-7.8); Neutrophils % 43.6 % (37.0-80.0); Nucleated Red Blood Cells # 0 10^3/uL; Nucleated Red Blood Cells % 0 %; Platelet Count 210 K/mm3 (142-424); Red Blood Count 5.04 M/mm3 (4.20-5.40); Red Cell Distribution Width 14.5 % (11.5-17.5); Red Cell Distribution Width-SD 49.8 fL; White Blood Count 7.2 K/mm3 (4.8-10.8)
[2024-07-09] MEDS: ACETAMINOPHEN 500MG TAB 1000 MG PO (23:15)
[2024-07-09 23:16] LABS: Albumin Level 4.7 g/dl (3.5-5.0); Chloride 106 mmol/L (98-107); Potassium 4.1 mmoL/L (3.5-5.1); Sodium 139 mmol/L (136-145)
--- NOTE | 2024-07-09 23:16 | ECG_ITS ---
APPROVED REPORT Exam: Resting ECG HR:62 bpm ECG Measurements Heart Rate 62 AXES OH 219 P 49 QRSd 94 QRS -34 QT 438 T 42 QTc 443 Conclusion SINUS RHYTHM WITH FIRST DEGREE AV BLOCK LEFT AXIS DEVIATION [QRS AXIS < -30] PATTERN CONSISTENT WITH PULMONARY DISEASE No STEMI Electronically signed by : DIPTI HERRING, 07/11/2024 05:06:10
[2024-07-09 23:18] LABS: Blood Urea Nitrogen 19 mg/dl (7-17); Creatinine Clearance Estimated 112 mL/min (50-200); Estimated Glomerular Filt Rate 74 ml/min (>60); GFR (African American) 89 ML/MIN (>60); INR 0.91 (0.9-1.1); Prothrombin Time 10.3 seconds (10.1-12.5)
[2024-07-09 23:19] LABS: Alanine Aminotransferase 31 U/L (12-78); Alkaline Phosphatase 101 U/L (38-126); Anion Gap 8.1 mEq/L (5-15); Aspartate Amino Transferase 30 U/L (14-36); Bilirubin,Total 0.3 mg/dl (0.2-1.3); Calcium 9.1 mg/dl (8.4-10.2); Carbon Dioxide 29 mmol/L (22.0-30.0); Globulin 2.3 g/dL (1.3-3.2); Glucose 91 mg/dl (74-100)
[2024-07-09 23:27] LABS: HCG Qualitative, Serum Negative (Negative)
[2024-07-09 23:28] LABS: NT Pro Brain Natriuretic Pep. 107 pg/mL (0-125)
[2024-07-09 23:32] LABS: Troponin I < 0.01 ng/ml (0.00-0.034)
[2024-07-09] MEDS: SODIUM CHLORIDE 0.9% 10ML SYR (RAD ONLY) 10 ML IV (23:50)
[2024-07-09] MEDS: IOPAMIDOL-370 (76%);100ML BOTTLE 80 ML IV (23:50)
[2024-07-09] MEDS: 0.9 % SODIUM CHLORIDE 50 ML VIAL IV (23:50)
[2024-07-10 00:52] VITALS: BP 139/90; PULSE 70; RESP 18; TEMP 36.5; O2SAT 98
--- NOTE | 2024-07-10 00:54 | PC.NURSE ---
IV discontinued. Catheter tip intact. Bleeding controlled.
== END 2024-07-10 00:54 | disposition home or self-care (01) ==
PROVIDERS: Emergency Provider Emergency Medicine
DX: R07.1 Chest pain on breathing (principal); R06.02 Shortness of breath; I44.0 Atrioventricular block, first degree; W01.10XA Fall on same level from slipping, tripping and stumbling with subsequent striking against unspecified object, initial encounter
CPT/HCPCS: 71046; 71275; 80053; 83880; 84484; 84703; 85025; 85610; 93005; 99285; Q9967

== ENCOUNTER 2024-12-08 21:45 | Emergency (ER) | payer OTHER, SELFPAY ==
[2024-12-08 22:20] VITALS: BP 204/112; PULSE 70; RESP 18; TEMP 37.2; O2SAT 100; BMI 31.3
--- OUTSIDE RECORDS SUMMARY | 2024-12-08 22:29 | XMS_ITS | Clinical Summary ---
Author Organization 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 Medications No information available. Medications Administered No information available. Allergies, Adverse Reactions, Alerts No information available. Results No information available. Plan of Care No information available. Procedures No information available. Vital Signs No information available. Immunizations No information available. Advance Directives No information available.
--- OUTSIDE RECORDS SUMMARY | 2024-12-08 22:30 | XMS_ITS | Clinical Summary ---
Author Organization 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 Name Role Phone Unavailable Primary Care Provider Unavailabl e Allergies No known active allergies Medications omeprazole (PRILOSEC) 20 mg Oral Capsule, Delayed Release(E.C.) TAKE 1 TABLET BY MOUTH DAILY FOR GERD 3 Active metoprolol succinate ER (TOPROL-XL) 100 mg Oral Tablet Sustained Release 24 hr TAKE 1 TABLET BY MOUTH DAILY FOR HIGH BLOOD PRESSURE 3 Active lisinopriL (PRINIVIL;ZESTR IL) 10 mg Oral Tablet TAKE 1 TABLET BY MOUTH DAILY FOR HIGH BLOOD PRESSURE 3 Active LEVOthyroxine (SYNTHROID) 25 mcg Oral Tablet TAKE 1 TABLET BY MOUTH ONCE DAILY FOR THYROID 3 Active hydrOXYzine (VISTARIL) 25 mg Oral Capsule Take 25 mg by mouth nightly. at bedtime for sleep 3 Active fluticasone propionate (FLONASE) 50 mcg/actuation Nasl Morrison, Suspension INHALE 1 PUFF TWICE DAILY FOR BREATHING PROBLEMS 3 Active aspirin 81 mg Oral Tablet, Chewable Take 81 mg by mouth daily. Active allopurinoL (ZYLOPRIM) 100 mg Oral Tablet TAKE 1 TABLET BY MOUTH DAILY FOR GOUT 3 Active VENTOLIN HFA 90 mcg/actuation Inhl HFA Aerosol Inhaler INHALE 1 PUFF BY MOUTH EVERY 6 HOURS NEEDED FOR SHORTNESS OF BREATH 3 Active Active Problems Patient Care Coordination No te Formatting of this note migh t be different from the original. dustin 07/31/17#[id number] Problem Noted Date Diagnosed Date Vestibular neuritis, bilateral 07/29/2022 Vertigo 07/28/2022 Attention deficit hyperactivity disorder (ADHD) 07/16/2019 Overview (07/28/2022): Discussed that we cannot fill controlled substance on day of first new patient appt. Patient understood and agreed. Placed referral to behavioral health Chronic bilateral low back pain with right-sided sciatica 07/16/2019 Overview (07/28/2022): Recommend physical therapy & supportive care. Consider pain management referral in future, but not at this time. No indications for acute imaging Gastroesophageal reflux disease without esophagi tis 07/16/2019 Overview (07/28/2022): Refills of omeprazole ordered. This issue was not fully addressed today. Chronic issue. Will need to be addressed at future visit, likely needs more work up Chronic gout 07/16/2019 Overview (07/28/2022): Recent flare up. Not fully addressed today. Stable at this time. Refill f allopurinol ordered Hypothyroidism 12/30/2017 Bipolar 1 disorder 09/02/2017 Overview (07/28/2022): On Lamictal 100mg BID, stable dose for some time now, to conitnue. Referral to Behavioral Health placed Mild intermittent asthma without complication Aortic aneurysm 02/10/2016 Essential hypertension 02/10/2016 Overview (07/28/2022): Elevated to 140s/90s in office today, out of meds x 2 days. Refills ordered. Follow up in 2-4 weeks for BP check. Has arm cuff at home, can do telehealth visit Thoracic ascending aortic aneurysm 12/18/2013 Surgical History Surgery Date Site/Laterality Comments LAPAROSCOPY Medical History Medical History Date Comments Hypertension FH: thoracic aneurysm Asthma Diabetes mellitus (HCC) Thyroid disease Social History Tobacco Use Types Packs/Day Years Used Date Smoking Tobacco: Never Smokeless Tobacco: Never Tobacco Cessation:Counseling Given: Not Answered Alcohol Use Standard Drinks/Week Comments Never 0 (1 standard drink = 0.6 oz pur e alcohol) Overall Financial Resource Strain (CARDIA) Answe r Date Recorded How hard is it for you to pa y for the very basics like food, housing, medical care, and heating? Not very hard 07/28/2022 PHQ-2 Answer Date Recorded PHQ-2 Total Score 0 07/28/2022 Exercise Vital Sign Answer Date Recorde d On average, how many days pe r week do you engage in moderate to strenuous exercise (like a brisk walk)? 0 days 07/28/2022 On average, how many minutes do you engage in exercise at this level? 0 min 07/28/2022 Hunger Vital Sign Answer Date Recorded Within the past 12 months, y ou worried that your food would run out before you got the money to buy more. Never true 07/29/19 23 Within the past 12 months, t he food you bought just didn't last and you didn't have money to get more. Never true 07/28/2022 PRAPARE - Transportation Answer Date Re corded In the past 12 months, has l ack of transportation kept you from medical appointments or from getting medications? No 04/2022 In the past 12 months, has l ack of transportation kept you from meetings, work, or from getting things needed for daily living? No 07/28/2022 Sexually Active Control Partners Comments Yes Male Comments No Sex and Gender Information Value Date Recorded Sex Assigned at Not on file Legal Sex Female 10:47 PM EDT Gender Identity Not on file Sexual Orientation Not on file Last Filed Vital Signs Vital Sign Reading Time Taken Comments Blood Pressure 131/69 07/28/2022 10:08 PM EDT Pulse 67 07/29/2022 11:11 AM EDT Temperature 36.6 C (97.9 F) 07/29/2022 11:11 AM EDT Respiratory Rate 16 07/29/2022 11:11 AM EDT Oxygen Saturation 100% 07/29/2022 11:11 AM EDT Inhaled Oxygen Concentration - - Weight 90.7 kg (200 lb) 07/28/2022 10:38 AM EDT Height 170.2 cm (5' 7 ) 07/28/2022 10:38 AM EDT Body Mass Index 31.32 07/28/2022 10:38 AM EDT Plan of Treatment Health Maintenance Due Date Last Done Comments Annual Wellness Exam 1968 Hepatitis B Vaccine (1 of 3 - 19+ 3-dose series) 1984 Pneumococcal Vaccine 50+ (1 of 2 - PCV) 1984 HPV/Pap Cotest 08/08/1995 Breast Cancer Screening 2005 Cologuard 2010 Colon Cancer Screening 2010 Colonoscopy 2010 FIT 2010 Sigmoidoscopy 2010 Virtual Colonography 2010 Zoster (1 of 2) 08/08/2015 Cervical Cancer Screening 01/30/2022 Pap Smear 01/30/2022 01/30/2019 DTaP/TDaP/Td (2 - Td or Tdap) 11/02/2023 11/01/2013 COVID-19 Vaccine (1 - 2023-2 5 season) 2024 Influenza Vaccine (#1) 2024 9, 11/25/2012 Meningococcal B Vaccine Aged Out No l onger eligible based on patient's age to complete [place] [address] [employer] [facility] [place] [address] [facility] [address] Advance Directives For more information, please contact: [phone] * Full Code (Latest Code Status on File) Date Activated Date Inactivated Comments 07/28/2022 10:37 AM 07/29/2022 7:56 PM
[2024-12-08 23:57] VITALS: BP 147/78; PULSE 65; RESP 17; TEMP 37.1; O2SAT 99
--- NOTE | 2024-12-08 23:57 | HMH.EDGENADL ---
Discharge Plan Disposition Patient Disposition: Home, Self-Care Condition: Good Prescriptions Prescriptions: No Action allopurinol 100 mg tablet 100 mg PO DAILY Qty: 90 3RF levothyroxine 25 mcg tablet 25 mcg PO DAILY 90 Days Qty: 90 3RF lisinopril 20 mg tablet 20 mg PO DAILY Qty: 60 2RF metoprolol succinate 100 mg tablet extended release 24 hr See Rx Instructions .ROUTE .COMPLEX Qty: 90 3RF Dose Instruction: TAKE 1 TABLET BY MOUTH DAILY FOR HIGH BLOOD PRESSURE Rx Instructions: TAKE 1 TABLET BY MOUTH DAILY FOR HIGH BLOOD PRESSURE Airsupra 90-80 mcg/actuation HFA aerosol inhaler 2 inh inhalation BID Qty: 10.7 8RF aspirin 81 mg Tablet 81 mg PO DAILY Referrals Follow up/Referrals: Provider,Referral, MD [Primary Care Provider, Medical] - See instructions Activity Restrictions/Add. Instructions Additional Instructions/Restrictions: You were evaluated in the ER and are believed to be appropriate for discharge at this time. Use the provided erythromycin ointment 4 times a day in the right eye for 1 week. Call to make an appointment with your eye doctor. Please follow-up with your primary care doctor in 1 to 2 days. Return to the ER with any new, worsening, or otherwise concerning symptoms as discussed including but not limited to worsening symptoms or symptoms that are not improving in the next 1 to 2 days. Clinical Impressions Clinical Impression: Corneal abrasion, right, Foreign body sensation, right eye Print Language Print Language: German Discharge ED Provider: Kali Barnes Adult HPI General Chief complaint: Eye Problems Stated complaint: dirt in right eye Time Seen by Provider: 12/08/24 23:37 Mode of Arrival: Ambulatory Source of Information: Patient Description of Symptoms (Recalled from ER Triage Doc. by RN): Pt was cleaning out her closet when she felt a pain in her right eye. Pt states she doesnt know what is in her eye but something for sure is in there. History of Present Illness HPI narrative: 59-year-old female with history of GERD, gout, asthma, hypothyroid, hypertension presents to the ER with complaints of sensation of foreign body in the right eye. She states she was cleaning out her closet and there was debris and dust flying around and something felt like it got into her eye. She states her vision in the eye is normal but it feels scratchy like there is something under the upper eyelid. Patient denies being a diabetic. She states she has no other complaints or concerns. No traumatic injury to the eye. She denies getting liquids or chemicals into the eye. No recent illness. Related Data Home Medications ?Medication ?Instructions ?Recorded ?Confirmed aspirin 81 mg tablet 81 mg PO DAILY . 07/31/22 12/08/24 Previous Rx's ?Medication ?Instructions ?Recorded albuterol 90 mcg-budesonide 80 2 inh inhalation BID Asthma #10.7 02/25/24 mcg/actuation HFA aerosol inhaler grams (Airsupra) metoprolol succinate 100 mg See Rx Instructions .Route 02/25/24 tablet,extended release 24 hr .COMPLEX #90 tabs allopurinol 100 mg tablet 100 mg PO DAILY #90 tabs 03/18/24 levothyroxine 25 mcg tablet 25 mcg PO DAILY 90 days #90 tabs 03/18/24 lisinopril 20 mg tablet 20 mg PO DAILY #60 tabs 03/18/24 Allergies Allergy/AdvReac Type Severity Reaction Status Date / Time No Known Allergies Allergy Verified 09/01/24 13:21 [facility] Disclaimer: The information contained in this section may have been updated after the patient was seen, as this information can be updated by other users. Medical History Dyspnea Atypical angina Ascending aortic aneurysm Family History Father Coronary artery disease Hypertension Grandmother Diabetes Hypertension Grandfather Hypertension Social History Smoking Status: Never smoker alcohol intake: former substance use type: denies use current occupational status: other Travel in the last 8 weeks?: None current occupation: pending disability caffeine: No Have you lived/traveled outside US in past 30 days?: No Contact w/someone who lives/traveled outside US past 30 days?: No Exposure to someone with infectious disease in past 14 days?: No Do you have a fever (greater than 100.4 F or 38 C)?: No Have you tested positive for COVID-19?: No Exposed to someone with COVID-19 in past 14 days?: No Do you have a sore throat?: No Do you have a cough?: No Do you have any weakness?: No Do you have any diarrhea?: No Are you experiencing any unusual bleeding?: No Do you have any muscle aches/pain?: No Do you have any abdominal pain?: No Are you experiencing loss of taste or smell?: No Other Medical History Have you received the Flu Vaccine for this season: No Have you received the Pneumonia Vaccine: No ROS Obtained: Yes Systems reviewed as appropriate & no additional complaints except as documented Per HPI Physical Exam General General appearance: alert and in no apparent distress Head Head exam: atraumatic and normocephalic Eye Eye exam: Present PERRL, EOMI, conjunctival injection (Right eye) and other (Normal vision in the right eye, fluorescein exam with very small less than 1 mm corneal abrasion at the 9 o'clock position near the edge of the cornea, on thorough exam of the eye no foreign body is appreciated, no hyphema or hypopyon. Everted eyelid and do not appreciate foreign body in the eyelid); Absent discharge Expanded Eye Exam IOP (R) in mmH IOP (L) in mmH IOP measured with: Tonopen (icare) ENT ENT exam: Present mucous membranes moist Neck Neck exam: Present normal inspection and full ROM Chest Chest inspection: Present symmetric chest wall rise Respiratory Respiratory exam: Absent respiratory distress or stridor Cardiovascular Cardiovascular exam: Present regular rate and normal rhythm Abdominal Exam Abdominal exam: Present soft; Absent distention or tenderness Extremities Exam Extremities exam: Present full ROM Neurological Exam Neurological exam: Present alert and oriented X3; Absent motor sensory deficit Psychiatric Psychiatric exam: Present normal affect and normal mood Skin Skin exam: Present warm and dry Medical Decision Making Medical Records Medical records reviewed: Yes I reviewed the patient's medical records. Screening: Per USPSTF and CDC recommendations, given the prevalence of disease in our region, it is our hospital?s policy to screen for HIV and viral Hepatitis for all patients aged 18 and over and those with ongoing risk factors. Brady Inquiry Pt receiving controlled substance: No Vital Signs: 12/08/24 22:20 12/08/24 23:57 Temperature 98.9 F 98.8 F Temperature Source Temporal Artery Scan Pulse Rate 65 Pulse Rate [Right] 70 Respiratory Rate 18 17 Blood Pressure 147/78 H Blood Pressure [Right Arm] 204/112 H Blood Pressure Mean [Right Arm] 142 Blood Pressure Source [Right Arm] Automatic Cuff Blood Pressure Position [Right Arm] Sitting 02 Sat by Pulse Oximetry 100 Oxygen Delivery Method Room Air Room Air Orders (Tests/Meds): ED MEDICATIONS Discontinued Medications Generic Name Dose Route Start Last Admin Trade Name Akua PRN Reason Stop Dose Admin Erythromycin 0.5 gm 12/08/24 23:54 12/09/24 00:00 Erythromycin Base 1 Gm Oint...G. OP 12/08/24 23:55 0.5 gm ONCE ONE Administration Fluorescein Sodium 1 mg 12/08/24 23:54 12/09/24 00:00 Fluorescein Sodium 1mg Strip OP 12/08/24 23:55 1 mg ONCE ONE Administration Tetracaine HCl 0 ml 12/08/24 23:54 12/08/24 23:59 Tetracaine 0.5% Opth Perri 15ml OP 12/08/24 23:55 15 ml ONCE ONE Administration Medical Decision Narrative: In summary, 59-year-old female presents to the ER complaining of right eye scratching sensation, foreign body sensation. Differential diagnose includes but is not limited to foreign body, corneal ulcer, hyphema, conjunctivitis,, corneal abrasion, considered injury to the eye, or open globe. I also considered the possibility of increased intraocular pressure or acute angle glaucoma. On evaluation patient is hypertensive but otherwise hemodynamically stable. She has a history of hypertension. Eye exam notable for right eye conjunctival injection, thorough exam of the eye does not demonstrate obvious foreign body including on eversion of the eyelid. Hill lamp exam with tetracaine and fluorescein was performed and patient has very small corneal abrasion that is not central to the visual field. Intraocular pressure is normal. Vision is at baseline according to the patient. Though I do not appreciate foreign body, I did thoroughly flush the eye with eyewash to ensure there was nothing microscopic that I could not visualize. Erythromycin applied to the eye to prevent infection with corneal abrasion. I recommended follow-up with ophthalmology but patient refused this stating she has no way to get to [place]. She states she will call her eye doctor in the morning for an appointment. She is also going to follow-up with her primary care doctor. Patient was given instructions on symptomatic management, erythromycin ointment use which was provided to her, follow up instructions, and return precautions for the emergency department. Patient indicated understanding and was discharged in stable condition. Critical Care Critical Care Time Critical Care Time: No
[2024-12-08] MEDS: TETRACAINE 0.5% OPTH SOL 15ML OP (23:59)
[2024-12-09] MEDS: FLUORESCEIN SODIUM 1MG STRIP 1 MG OP
[2024-12-09] MEDS: ERYTHROMYCIN BASE 1 GM OINT...G. 0.5 GM OP
== END 2024-12-09 00:01 | disposition home or self-care (01) ==
PROVIDERS: Emergency Provider Student in an Organized Health Care Education/Training Program
DX: S05.01XA Injury of conjunctiva and corneal abrasion without foreign body, right eye, initial encounter (principal); W44.9XXA Unspecified foreign body entering into or through a natural orifice, initial encounter
CPT/HCPCS: 99283